=== PATIENT | female | born 1935 | race Hispanic/Latino ===

== ENCOUNTER 2016-05-22 14:23 | Outpatient (CLI) | payer MEDICARE, OTHER ==
--- NOTE | 2016-05-22 15:14 | XRay Report ---
Cervical spine 3 views: History: Cervical age. Myelopathy. Findings: Normal height of vertebral bodies. Decrease in height of the C5-C6, C6-C7 and C7-T1. Sclerotic adjacent articular surfaces with peripheral osteophytes suggestive of cervical spondylosis. No fracture. Normal prevertebral soft tissue. Impression: Moderate to severe cervical spondylosis.
== END 2016-05-22 14:24 | disposition home or self-care (01) ==
LOC: SPVIMAG 14:23
PROVIDERS: ATTEND Internal Medicine
DX: M47.892 Other spondylosis, cervical region (principal); M50.00 Cervical disc disorder with myelopathy, unspecified cervical region; M25.78 Osteophyte, vertebrae
CPT/HCPCS: 72040

== ENCOUNTER 2016-08-11 06:38 | Inpatient (IN) | payer MEDICARE, OTHER ==
[2016-08-11] MEDS ORDERED: ZOFRAN ODT PO ONE (08:33)
[2016-08-11] MEDS ORDERED: NORCO 5/325 PO ONE (08:33)
--- NOTE | 2016-08-11 08:38 | Emergency Department Report ---
ED General Adult HPI - General Chief complaint: Back Pain/Injury Stated complaint: BACK PAIN Time Seen by Provider: 08/11/16 08:15 Source: patient, family, EMS Mode of arrival: Stretcher Limitations: No Limitations - History of Present Illness Initial comments: PT c/o "all my muscles in my body are hurting" PT states this started several days ago. PT's reports that pt has a hx of arthritis in her neck and has disc disease in her back and her pain has been increased x 1 week. PT states 1 week ago, she was sitting in a lazy boy and she had on new slick pants and she slid out of the chair. PT states she landed on her buttocks and she was not able to get up. PT states her was asleep and she sat on the floor until he woke up and could get her up. PT states this morning, she had the urge to use the restroom and she urinated while she was "taking baby steps" to the potty chair. PT states after she had bm, she was unable to get up from potty chair. PT states she was on the chair for 2 hours. PT states she was recently seen by senior sql developer and had an EKG and was given a good bill of health. PT states she was also seen by Psych and her doctor did a medication review and told her not to take Aleve more than three days a week. Pt's reports that she has recently had neck xrs and she was given a muscle relaxer but the muscle relaxer was too strong and "almost put her out" MD Complaint: muscle pain, lbp -: Gradual, week(s) (one ) Location: upper extremity, lower extremity Severity scale (0 -10): 7 Quality: constant Consistency: constant Improves with: none Worsens with: movement (of lower ext) Associated Symptoms: malaise, weakness (generalized ). denies: confusion, chest pain, nausea/vomiting, syncope Treatments Prior to Arrival: none - Related Data Home Medications Medication Instructions Recorded Confirmed Last Taken AtorvaSTATin [Lipitor] 10 mg PO QHS 08/11/16 08/11/16 Unknown Baclofen [Lioresal] 10 mg PO DAILY 08/11/16 08/11/16 Unknown Insulin Glargine,Hum.rec.anlog 30 units SQ QHS 08/11/16 08/11/16 Unknown [Lantus Solostar] Sertraline [Zoloft] 100 mg PO BID 08/11/16 08/11/16 Unknown Tizanidine HCl [Zanaflex] 4 mg PO BID 08/11/16 08/11/16 Unknown glipiZIDE [Glucotrol] 5 mg PO QDAY 08/11/16 08/11/16 Unknown Allergies Allergy/AdvReac Type Severity Reaction Status Date / Time Penicillins AdvReac Itching Unverified 12/27/12 14:07 ED Review of Systems ROS: Stated complaint: BACK PAIN Other details as noted in HPI Comment: All other systems reviewed and negative Constitutional: weakness (generalized ), other (trouble sleeping ) Cardiovascular: denies: chest pain, syncope Endocrine: other (elevated hgA1c ) Gastrointestinal: denies: nausea, vomiting, diarrhea, constipation Genitourinary: other (functional incontinence) Musculoskeletal: back pain, arthralgia, myalgia, other (neck pain) Neurological: weakness, numbness ED Past Medical Hx - Past Medical History Hx Diabetes: Yes Hx Psychiatric Treatment: Yes (depression/anxiety) Additional medical history: renal stones, - Social History Smoking Status: Never Smoker Substance Use Type: None - Medications Home Medications: Home Medications Medication Instructions Recorded Confirmed Last Taken Type AtorvaSTATin [Lipitor] 10 mg PO QHS 08/11/16 08/11/16 Unknown History Baclofen [Lioresal] 10 mg PO DAILY 08/11/16 08/11/16 Unknown History Insulin Glargine,Hum.rec.anlog 30 units SQ QHS 08/11/16 08/11/16 Unknown History [Lantus Solostar] Sertraline [Zoloft] 100 mg PO BID 08/11/16 08/11/16 Unknown History Tizanidine HCl [Zanaflex] 4 mg PO BID 08/11/16 08/11/16 Unknown History glipiZIDE [Glucotrol] 5 mg PO QDAY 08/11/16 08/11/16 Unknown History ED Physical Exam - General Limitations: No Limitations General appearance: alert, in no apparent distress - Head Head exam: Present: atraumatic, normocephalic, normal inspection - Eye Eye exam: Present: normal appearance. Absent: conjunctival injection - ENT ENT exam: Present: normal exam, normal external ear exam - Neck Neck exam: Present: normal inspection, full ROM. Absent: tenderness - Respiratory Respiratory exam: Present: normal lung sounds bilaterally. Absent: respiratory distress, chest wall tenderness - Cardiovascular Cardiovascular Exam: Present: regular rate, normal rhythm, normal heart sounds - GI/Abdominal GI/Abdominal exam: Present: soft, normal bowel sounds. Absent: distended, tenderness, guarding, rebound - Rectal Rectal exam: Present: normal inspection - External exam: Present: normal external exam - Extremities Exam Extremities exam: Present: normal inspection, normal capillary refill, other. Absent: full ROM, tenderness, pedal edema, joint swelling, calf tenderness - Expanded Lower Extremity Exam Left Hip exam: Present: normal inspection. Absent: full ROM (pt has L hip pain limiting rom ), tenderness, external rotation, internal rotation Knee exam: Present: normal inspection. Absent: tenderness Lower Leg exam: Present: normal inspection. Absent: tenderness Neuro vascular tendon exam: Present: no vascular compromise. Absent: pulse deficit Right Hip exam: Present: normal inspection. Absent: full ROM (pt has R hip pain limiting rom ) Upper Leg exam: Present: normal inspection Knee exam: Present: normal inspection. Absent: tenderness Lower Leg exam: Present: normal inspection. Absent: tenderness Ankle exam: Present: normal inspection. Absent: tenderness Neuro vascular tendon exam: Present: no vascular compromise - Back Exam Back exam: Present: normal inspection. Absent: tenderness, CVA tenderness (R), CVA tenderness (L), muscle spasm, paraspinal tenderness, vertebral tenderness - Expanded Back Exam Expanded Back exam: Positive Straight Leg Raise: Left, Right (however, pt also reports increase of hip to side being tested) - Neurological Exam Neurological exam: Present: alert, oriented X3 - Expanded Neurological Exam Expanded Patient oriented to: Present: person, place, time Speech: Present: fluid speech Motor strength exam: RUE: 4, LUE: 4, RLE: 3 (pt reports incease pain to R hip with rom of RLE ), LLE: 3 (pt reports increase pain to L hip with ROM of LLE ) Best Eye Response ([place]): (4) open spontaneously Best Motor Response ([place]): (6) obeys commands Best Verbal Response ([place]): (5) oriented [place] Total: 15 - Psychiatric Psychiatric exam: Present: normal affect, normal mood - Skin Skin exam: Present: warm, dry, intact, erythema (to buttocks, blanches ) ED Course Vital Signs 08/11/16 08/11/16 08/11/16 08:53 12:30 15:22 Temperature 98.3 F Pulse Rate 77 80 69 Respiratory 16 16 16 Rate Blood Pressure 149/68 130/78 112/75 [Left] O2 Sat by Pulse 16 L 99 99 Oximetry - Reevaluation(s) Reevaluation #1: 08/11/16 08:51 PT and her aware of plan of care. Reevaluation #2: 08/11/16 11:11 PT states the pain pill helped her pain. PT aware awaiting UA and CT report Reevaluation #3: 08/11/16 13:24 PT and pt's aware of labs and CT scan. PT's reports that pt has a hx of septic shock from UTI 6-7 years ago. offered admission, pt accepted. - Consultations Consultation #1: 08/11/16 13:24 Dr Sheridan - Pulse Oximetry Interpretation Digit-Finger Initial Pulse Oximetry Readin Actions Taken: none ED Medical Decision Making - Lab Data Result diagrams: 08/11/16 08:38 08/11/16 08:38 Labs 08/11/16 08/11/16 08/11/16 08:38 08:38 12:15 WBC 10.1 RBC 4.41 Hgb 12.0 Hct 35.4 MCV 80 MCH 27 L MCHC 34 RDW 13.8 Plt Count 303 Lymph % (Auto) 15.0 [place] % (Auto) 7.6 H Eos % (Auto) 1.1 Baso % (Auto) 0.5 Lymph # 1.5 [place] # 0.8 Eos # 0.1 Baso # 0.0 Seg Neutrophils % 75.8 H Seg Neutrophils # 7.7 Sodium 134 L Potassium 4.0 Chloride 96.8 L Carbon Dioxide 22 Anion Gap 19 BUN 12 Creatinine 0.6 L Estimated GFR > 60 BUN/Creatinine Ratio 20.00 Glucose 275 H Calcium 9.1 Total Bilirubin 0.80 AST 11 ALT 10 Alkaline Phosphatase 95 Total Creatine Kinase 25 L Total Protein 7.5 Albumin 3.1 L Albumin/Globulin Ratio 0.7 Urine Color Yellow Urine Turbidity Cloudy Urine pH 7.0 Ur Specific [place] 1.017 Urine Protein 30 mg/dl Urine Glucose (UA) >=500 Urine Ketones Tr Urine Blood Neg Urine Nitrite Neg Urine Bilirubin Neg Urine Urobilinogen < 2.0 Ur Leukocyte Esterase Mod Urine WBC (Auto) 33.0 H Urine RBC (Auto) 3.0 U Epithel Cells (Auto) < 1.0 Urine Bacteria (Auto) 1+ Urine Mucus Few - Radiology Data Radiology results: report reviewed XR hips - nap CT L spine - no fx, osteopenia, degenerative changes - Differential Diagnosis fall, fracture, uti, rhabdo, Critical Care Time: No Critical care attestation.: If time is entered above; I have spent that time in minutes in the direct care of this critically ill patient, excluding procedure time. ED Disposition Clinical Impression: Myalgia, Impaired gait and mobility UTI (urinary tract infection) Qualifiers: Urinary tract infection type: site unspecified Hematuria presence: with hematuria Qualified Code(s): N39.0 - Urinary tract infection, site not specified Low back pain Qualifiers: Chronicity: acute Back pain laterality: midline Sciatica presence: unspecified whether sciatica present Qualified Code(s): M54.5 - Low back pain Disposition: OP ADMIT IP TO THIS HOSP Is pt being admited?: Yes Does the pt Need Aspirin: No Condition: Stable
[2016-08-11 09:18] LABS: Basophils % (Auto) 0.5 % (0.0-1.8); Eosinophils % (Auto) 1.1 % (0.0-4.3); Hematocrit 35.4 % (30.3-42.9); Mean Corpuscular HGB Conc 34 % (30-34); Mean Corpuscular Hemoglobin 27 pg (28-32); Mean Corpuscular Volume 80 fl (79-97); Platelet Count 303 K/mm3 (140-440); Red Blood Count 4.41 M/mm3 (3.65-5.03); Red Cell Distribution Width 13.8 % (13.2-15.2); White Blood Count 10.1 K/mm3 (4.5-11.0)
[2016-08-11 09:26] LABS: Alanine Aminotransferase 10 units/L (7-56); Albumin 3.1 g/dL (3.9-5); Albumin/Globulin Ratio 0.7 %; Alkaline Phosphatase 95 units/L (35-129); Anion Gap 19 mmol/L; Blood Urea Nitrogen 12 mg/dL (7-17); Calcium 9.1 mg/dL (8.4-10.2); Carbon Dioxide 22 mmol/L (22-30); Chloride 96.8 mmol/L (98-107); Creatine Kinase 25 units/L (30-135); Glucose 275 mg/dL (65-100); Sodium 134 mmol/L (137-145); Total Protein 7.5 g/dL (6.3-8.2)
--- NOTE | 2016-08-11 10:34 | XRay Report ---
Bilateral hips and pelvis: History: Pain status post fall one week ago. Findings: There is arthritic changes noted in the right and left hip joint. No fracture dislocation or soft tissue calcification. Impression: No evidence of acute fracture.
--- NOTE | 2016-08-11 11:56 | Cat Scan Report ---
CT of the lumbar spine without contrast. History: Low back pain and lower extremity numbness after fall. Findings: Helical acquisition with sagittal and coronal reformatted images were obtained. The vertebral body heights are well-maintained. There is no evidence of compression fracture or subluxation. At T12-L1, there is severe narrowing of the disc space with vacuum disc phenomenon. There are extensive anterior hypertrophic changes. At L1-2, there is moderate facet joint DJD and hypertrophy. At L2-3, there is mild facet joint DJD and hypertrophy. At L3-4, there is mild facet joint DJD. At the L4-5 level, there is moderate facet joint DJD and hypertrophy with a circumferential disc bulge. At L5-S1, there is severe narrowing of the disc space. There are posterior hypertrophic changes with bilateral foraminal stenosis. There is diffuse osteopenia. Impression: Multilevel spondylosis and facet joint arthropathy, most pronounced at L5-S1 where foraminal stenosis is present. There is diffuse osteopenia. No acute findings are seen.
[2016-08-11 12:35] LABS: Bacteria,Urine 1+ /HPF (Negative); Bilirubin,Urine NEG (Negative); Blood,Urine NEG (Negative); Ketones,Urine TR mg/dL (Negative); Leukocyte Esterase,Urine MOD (Negative); Mucus,Urine FEW /HPF; Nitrite,Urine NEG (Negative); Urobilinogen,Urine < 2.0 mg/dL (<2.0)
--- NOTE | 2016-08-11 13:23 | History and Physical Report ---
History of Present Illness Chief complaint: I feel sick, My back hurts, History of present illness: 80 YO female with DM, Depression, Anxiety, presents to ED for evaluation. Pt states that she has experienced weakness, and back pain for the past 2 weeks, with worsening symptoms over the past week. Pt states that she feels weak and is no longer able to get up from a seated position and walk. Pt acknowledges suprapubic tenderness, loss of bladder continence, as well as subjective fever. Pt denies chills, CP, Palpitations, NVD, Syncope, Trauma, Vertigo, loss of bowel continence, productive cough, or recent ill contacts. Past History Past Medical History: diabetes Past Surgical History: No surgical history, Other (reviewed) Social history: , lives with family. denies: smoking, alcohol abuse, prescription drug abuse Family history: hypertension Medications and Allergies Allergies Allergy/AdvReac Type Severity Reaction Status Date / Time Penicillins AdvReac Itching Unverified 12/27/12 14:07 Home Medications Medication Instructions Recorded Confirmed Last Taken Type AtorvaSTATin [Lipitor] 10 mg PO QHS 08/11/16 08/11/16 Unknown History Baclofen [Lioresal] 10 mg PO DAILY 08/11/16 08/11/16 Unknown History Insulin Glargine,Hum.rec.anlog 30 units SQ QHS 08/11/16 08/11/16 Unknown History [Lantus Solostar] Sertraline [Zoloft] 100 mg PO BID 08/11/16 08/11/16 Unknown History Tizanidine HCl [Zanaflex] 4 mg PO BID 08/11/16 08/11/16 Unknown History glipiZIDE [Glucotrol] 5 mg PO QDAY 08/11/16 08/11/16 Unknown History Review of Systems All systems: negative Genitourinary Female: dysuria Exam - Constitutional Vitals: Temp Pulse Resp BP Pulse Ox 98.3 F 77 16 149/68 99 08/11/16 08:53 08/11/16 08:53 08/11/16 08:53 08/11/16 08:53 08/11/16 08:53 General appearance: Present: mild distress - EENT Eyes: Present: PERRL ENT: hearing intact, clear oral mucosa - Neck Neck: Present: supple, normal ROM - Respiratory Respiratory effort: normal Respiratory: bilateral: CTA - Cardiovascular Heart Sounds: Present: S1 & S2. Absent: rub, click - Extremities Extremities: pulses symmetrical, No edema Peripheral Pulses: within normal limits - Abdominal General gastrointestinal: Present: soft, non-tender, non-distended, normal bowel sounds Localized gastrointestinal: tender: suprapubic Female genitourinary: Present: normal - Integumentary Integumentary: Present: clear, dry, decreased turgor - Musculoskeletal Musculoskeletal: generalized weakness - Psychiatric Psychiatric: appropriate mood/affect, intact judgment & insight - Neurologic Neurologic: CNII-XII intact, moves all extremities, no gait normal Results - Labs CBC & Chem 7: 08/11/16 08:38 08/11/16 08:38 Labs: Abnormal lab results 08/11/16 08/11/16 08/11/16 Range/Units 08:38 08:38 12:15 MCH 27 L (28-32) pg [place] % (Auto) 7.6 H (0.0-7.3) % Seg Neutrophils % 75.8 H (40.0-70.0) % Sodium 134 L (137-145) mmol/L Chloride 96.8 L (98-107) mmol/L Creatinine 0.6 L (0.7-1.2) mg/dL Glucose 275 H (65-100) mg/dL Total Creatine Kinase 25 L (30-135) units/L Albumin 3.1 L (3.9-5) g/dL Urine WBC (Auto) 33.0 H (0.0-6.0) /HPF Assessment and Plan - Patient Problems (1) UTI (urinary tract infection) Current Visit: Yes Status: Acute Qualifiers: Urinary tract infection type: site unspecified Hematuria presence: with hematuria Indwelling urinary catheter type: I Encounter type: E Qualified Code(s): N39.0 - Urinary tract infection, site not specified; R31.9 - Hematuria , unspecified Plan to address problem: IV abx, IVF, supportive care, monitor uop q shift (2) Debility Current Visit: Yes Status: Acute Plan to address problem: PT consulted, Pending evaluation for rehab/SNF placement (3) Hyponatremia syndrome Current Visit: Yes Status: Acute Plan to address problem: IVF replacement, repeat bmp (4) Impaired gait and mobility Current Visit: Yes Status: Acute Plan to address problem: PT consulted, bed alarm, fall precautions, (5) Low back pain Current Visit: Yes Status: Acute Qualifiers: Chronicity: acute Back pain laterality: midline Sciatica presence: unspecified whether sciatica present Sciatica laterality: S Qualified Code(s ): M54.5 - Low back pain Plan to address problem: Pain control, supportive care, (6) DVT prophylaxis Current Visit: Yes Status: Acute
[2016-08-11] MEDS ORDERED: NACL 0.9% 1000 ML 1,000 ML IV ONE (13:25)
--- NOTE | 2016-08-11 13:40 | Admit Criteria Form ---
Admission Criteria Documentation: URINARY COMPLICATIONS Clinical Indications for Inpatient Care (Place 'X' for any and all applicable criteria): Ongoing inpatient care may be indicated for urinary complications with ANY ONE of the following: [X ]I. Urinary tract infection requiring inpatient care as indicated by ANY ONE of the following(8)(19)(20): [ ]a) Severe symptoms (eg, high fever, severe pain) [ ]b) Vomiting or dehydration requiring ongoing inpatient care [ X]c) IV antibiotic needs that cannot be managed at lower level of care [ ]d) Hemodynamic instability [ ]e) Obstruction of collecting system by stone or tumor [ ]II. Urinary retention requiring drainage or surgery (3)(4)(5)(17)(18) [ ]III. Renal failure (Use Renal Failure Criteria for further information.) [ ]IV. Oliguria(30) [ ]V. Post obstructive diuresis requiring close monitoring of urine output and intravenous compensation for excessive fluid losses(33) Extended stay beyond goal length of stay for primary condition may be needed until ALL of the following are present(3)(4)(5)(8): [ ]a) Renal function (creatinine) at baseline, or daily decreases in creatinine consistent with renal function return [ ]b) Voiding adequately or with urinary catheter or percutaneous suprapubic tube and management regimen in place that is performable at lower level of care. [ ]c) Urine output adequate [ ]d) Fever absent or resolving [ ]e) Infection absent or treatable at next level of care The original [employer] content created by [employer] has been revised. The portions of the content which have been revised are identified through the use of italic text or in bold, and [facility] has neither reviewed nor approved the modified material. All other unmodified content is copyright [employer] Please see references footnoted in the original [employer] edition 2016 Admission Criteria Met: Yes
[2016-08-11] MEDS ORDERED: ZOFRAN IV PRN (14:13)
[2016-08-11] MEDS ORDERED: DULCOLAX PR PRN (14:13)
[2016-08-11] MEDS ORDERED: MILK OF MAGNESIA PO PRN (14:13)
[2016-08-11] MEDS ORDERED: LEVAQUIN 500MG/100ML 500 MG/100 ML BAG IV SCH (14:31)
[2016-08-11] MEDS ORDERED: NACL 0.9% 1000 ML 1,000 ML ONE (15:15)
[2016-08-11] MEDS ORDERED: LEVAQUIN 500MG/100ML 500 MG/100 ML BAG IV ONE (15:25)
[2016-08-11] MEDS: LEVAQUIN 250MG/50ML 250 MG/50 ML BAG IV SCH ×2 (15:30→16:02)
[2016-08-11] MEDS ORDERED: INSULIN GLARGINE HUM REC ANLOG 30 UNIT SQ SCH (22:00)
[2016-08-11] MEDS ORDERED: NON-FORMULARY (Tizanidine Hcl [Zanaflex] 4 MG) PO SCH (22:00)
[2016-08-11] MEDS: LEVEMIR SUB-Q SCH (23:01)
[2016-08-11] MEDS: ZANAFLEX PO SCH (23:02)
[2016-08-11] MEDS: ZOLOFT PO SCH (23:02)
[2016-08-12] MEDS: TYLENOL PO PRN ×2 (08:07→22:13)
--- NOTE | 2016-08-12 08:31 | Progress Note ---
Assessment and Plan Assessment and plan: --sepsis secondary to urinary tract infection Continue empiric antibiotics, follow cultures, IV fluids --Mild hyponatremia, slight improvement, continue IV fluids Closely monitor electrolytes --Type 2 diabetes mellitus; moderate control, Accu-Chek sliding scale coverage and ADA diet Insulin and oral hypoglycemics, check hemoglobin A1c, diabetic education, home with diabetic nurse --Degenerative joint disease Supportive care, pain medications, physical therapy occupational therapy --General debility/advanced age Supportive care, physical therapy and occupational therapy, fall precautions --Dyslipidemia; stable on lipid-lowering medications --DVT prophylaxis with Lovenox Physical therapy occupational therapy --DC planning. Case management --Code status; full code As the monitor the patient had just management as needed History Interval history: Patient seen and evaluated this morning medical records reviewed Admitted with urinary tract infection on empiric antibiotics Patient feels slightly better, blood sugars are uncontrolled Alert awake and responding appropriately, vital signs stable Hospitalist Physical - Constitutional Vitals: Temp Pulse Resp BP Pulse Ox 98.1 F 65 20 146/64 96 08/11/16 23:45 08/11/16 23:45 08/11/16 23:45 08/11/16 23:45 08/11/16 23:45 General appearance: Present: no acute distress, cachectic - EENT Eyes: Present: PERRL, EOM intact - Neck Neck: Present: supple, normal ROM - Respiratory Respiratory effort: normal Respiratory: bilateral: diminished, negative: rales, rhonchi, wheezing - Cardiovascular Rhythm: regular Heart Sounds: Present: S1 & S2 - Extremities Extremities: no ischemia, pulses intact, pulses symmetrical Peripheral Pulses: within normal limits - Abdominal General gastrointestinal: soft, non-tender, non-distended, normal bowel sounds - Integumentary Integumentary: Present: clear, warm - Psychiatric Psychiatric: appropriate mood/affect, cooperative - Neurologic Neurologic: CNII-XII intact, moves all extremities Results - Labs CBC & Chem 7: 08/11/16 08:38 08/11/16 08:38 Labs: Laboratory Last Values WBC 10.1 K/mm3 (4.5-11.0) 08/11/16 08:38 RBC 4.41 M/mm3 (3.65-5.03) 08/11/16 08:38 Hgb 12.0 gm/dl (10.1-14.3) 08/11/16 08:38 Hct 35.4 % (30.3-42.9) 08/11/16 08:38 MCV 80 fl (79-97) 08/11/16 08:38 MCH 27 pg (28-32) L 08/11/16 08:38 MCHC 34 % (30-34) 08/11/16 08:38 RDW 13.8 % (13.2-15.2) 08/11/16 08:38 Plt Count 303 K/mm3 (140-440) 08/11/16 08:38 Lymph % (Auto) 15.0 % (13.4-35.0) 08/11/16 08:38 [place] % (Auto) 7.6 % (0.0-7.3) H 08/11/16 08:38 Eos % (Auto) 1.1 % (0.0-4.3) 08/11/16 08:38 Baso % (Auto) 0.5 % (0.0-1.8) 08/11/16 08:38 Lymph # 1.5 K/mm3 (1.2-5.4) 08/11/16 08:38 [place] # 0.8 K/mm3 (0.0-0.8) 08/11/16 08:38 Eos # 0.1 K/mm3 (0.0-0.4) 08/11/16 08:38 Baso # 0.0 K/mm3 (0.0-0.1) 08/11/16 08:38 Seg Neutrophils % 75.8 % (40.0-70.0) H 08/11/16 08:38 Seg Neutrophils # 7.7 K/mm3 (1.8-7.7) 08/11/16 08:38 Sodium 134 mmol/L (137-145) L 08/11/16 08:38 Potassium 4.0 mmol/L (3.6-5.0) 08/11/16 08:38 Chloride 96.8 mmol/L (98-107) L 08/11/16 08:38 Carbon Dioxide 22 mmol/L (22-30) 08/11/16 08:38 Anion Gap 19 mmol/L 08/11/16 08:38 BUN 12 mg/dL (7-17) 08/11/16 08:38 Creatinine 0.6 mg/dL (0.7-1.2) L 08/11/16 08:38 Estimated GFR > 60 ml/min 08/11/16 08:38 BUN/Creatinine Ratio 20.00 % 08/11/16 08:38 Glucose 275 mg/dL (65-100) H 08/11/16 08:38 POC Glucose 159 (70-105) H 08/12/16 07:45 Calcium 9.1 mg/dL (8.4-10.2) 08/11/16 08:38 Total Bilirubin 0.80 mg/dL (0.1-1.2) 08/11/16 08:38 AST 11 units/L (5-40) 08/11/16 08:38 ALT 10 units/L (7-56) 08/11/16 08:38 Alkaline Phosphatase 95 units/L (35-129) 08/11/16 08:38 Total Creatine Kinase 25 units/L (30-135) L 08/11/16 08:38 Total Protein 7.5 g/dL (6.3-8.2) 08/11/16 08:38 Albumin 3.1 g/dL (3.9-5) L 08/11/16 08:38 Albumin/Globulin Ratio 0.7 % 08/11/16 08:38 Urine Color Yellow (Yellow) 08/11/16 12:15 Urine Turbidity Cloudy (Clear) 08/11/16 12:15 Urine pH 7.0 (5.0-7.0) 08/11/16 12:15 Ur Specific [place] 1.017 (1.003-1.030) 08/11/16 12:15 Urine Protein 30 mg/dl mg/dL (Negative) 08/11/16 12:15 Urine Glucose (UA) >=500 mg/dL (Negative) 08/11/16 12:15 Urine Ketones Tr mg/dL (Negative) 08/11/16 12:15 Urine Blood Neg (Negative) 08/11/16 12:15 Urine Nitrite Neg (Negative) 08/11/16 12:15 Urine Bilirubin Neg (Negative) 08/11/16 12:15 Urine Urobilinogen < 2.0 mg/dL (<2.0) 08/11/16 12:15 Ur Leukocyte Esterase Mod (Negative) 08/11/16 12:15 Urine WBC (Auto) 33.0 /HPF (0.0-6.0) H 08/11/16 12:15 Urine RBC (Auto) 3.0 /HPF (0.0-6.0) 08/11/16 12:15 U Epithel Cells (Auto) < 1.0 /HPF (0-13.0) 08/11/16 12:15 Urine Bacteria (Auto) 1+ /HPF (Negative) 08/11/16 12:15 Urine Mucus Few /HPF 08/11/16 12:15
[2016-08-12] MEDS: ZOLOFT PO SCH ×2 (10:25→22:13)
[2016-08-12] MEDS: LIORESAL PO SCH (10:25)
[2016-08-12] MEDS: ZANAFLEX PO SCH ×2 (10:25→22:12)
[2016-08-12] MEDS: LEVAQUIN 250MG/50ML 250 MG/50 ML BAG IV SCH (16:13)
[2016-08-12] MEDS: NOVOLOG SUB-Q SCH ×2 (16:46→22:35)
[2016-08-12] MEDS: LOVENOX SUB-Q SCH (22:13)
[2016-08-12] MEDS: LEVEMIR SUB-Q SCH (22:16)
[2016-08-13] MEDS: NOVOLOG SUB-Q SCH ×4 (07:40→22:54)
--- NOTE | 2016-08-13 07:43 | Progress Note ---
Assessment and Plan Assessment and plan: --sepsis secondary to urinary tract infection Continue empiric antibiotics, changed to oral Levaquin, cultures negative so far --Mild hyponatremia, corrected --Type 2 diabetes mellitus; moderate control, Accu-Chek sliding scale coverage and ADA diet Insulin and oral hypoglycemics, check hemoglobin A1c, diabetic education, home with diabetic nurse --Degenerative joint disease Supportive care, pain medications, physical therapy occupational therapy --General debility/advanced age Supportive care, physical therapy and occupational therapy, fall precautions --Dyslipidemia; stable on lipid-lowering medications --DVT prophylaxis with Lovenox Physical therapy occupational therapy --DC planning. Case management --Code status; full code Discharge in 1-2 days if stable As the monitor the patient had just management as needed History Interval history: patient seen and evaluated medical records reviewed No new events reported by the nursing staff Complaints of generalized weakness, alert and awake and responds appropriately Vital signs stable Hospitalist Physical - Constitutional Vitals: Temp Pulse Resp BP Pulse Ox 98.1 F 61 18 90/69 99 08/12/16 22:00 08/13/16 02:07 08/12/16 23:13 08/12/16 22:00 08/12/16 22:00 General appearance: Present: no acute distress, cachectic - EENT Eyes: Present: PERRL, EOM intact ENT: hearing intact, clear oral mucosa, dentition normal - Neck Neck: Present: supple, normal ROM - Respiratory Respiratory: bilateral: diminished, negative: rales, rhonchi, wheezing - Cardiovascular Rhythm: regular Heart Sounds: Present: S1 & S2 - Extremities Extremities: no ischemia, No edema Peripheral Pulses: within normal limits - Abdominal General gastrointestinal: soft, non-tender, non-distended, normal bowel sounds - Integumentary Integumentary: Present: clear, warm - Psychiatric Psychiatric: appropriate mood/affect, cooperative - Neurologic Neurologic: CNII-XII intact, moves all extremities Results - Labs CBC & Chem 7: 08/11/16 08:38 08/13/16 07:00 Labs: Laboratory Last Values WBC 10.1 K/mm3 (4.5-11.0) 08/11/16 08:38 RBC 4.41 M/mm3 (3.65-5.03) 08/11/16 08:38 Hgb 12.0 gm/dl (10.1-14.3) 08/11/16 08:38 Hct 35.4 % (30.3-42.9) 08/11/16 08:38 MCV 80 fl (79-97) 08/11/16 08:38 MCH 27 pg (28-32) L 08/11/16 08:38 MCHC 34 % (30-34) 08/11/16 08:38 RDW 13.8 % (13.2-15.2) 08/11/16 08:38 Plt Count 303 K/mm3 (140-440) 08/11/16 08:38 Lymph % (Auto) 15.0 % (13.4-35.0) 08/11/16 08:38 [place] % (Auto) 7.6 % (0.0-7.3) H 08/11/16 08:38 Eos % (Auto) 1.1 % (0.0-4.3) 08/11/16 08:38 Baso % (Auto) 0.5 % (0.0-1.8) 08/11/16 08:38 Lymph # 1.5 K/mm3 (1.2-5.4) 08/11/16 08:38 [place] # 0.8 K/mm3 (0.0-0.8) 08/11/16 08:38 Eos # 0.1 K/mm3 (0.0-0.4) 08/11/16 08:38 Baso # 0.0 K/mm3 (0.0-0.1) 08/11/16 08:38 Seg Neutrophils % 75.8 % (40.0-70.0) H 08/11/16 08:38 Seg Neutrophils # 7.7 K/mm3 (1.8-7.7) 08/11/16 08:38 Sodium 134 mmol/L (137-145) L 08/11/16 08:38 Potassium 4.0 mmol/L (3.6-5.0) 08/11/16 08:38 Chloride 96.8 mmol/L (98-107) L 08/11/16 08:38 Carbon Dioxide 22 mmol/L (22-30) 08/11/16 08:38 Anion Gap 19 mmol/L 08/11/16 08:38 BUN 12 mg/dL (7-17) 08/11/16 08:38 Creatinine 0.6 mg/dL (0.7-1.2) L 08/11/16 08:38 Estimated GFR > 60 ml/min 08/11/16 08:38 BUN/Creatinine Ratio 20.00 % 08/11/16 08:38 Glucose 275 mg/dL (65-100) H 08/11/16 08:38 POC Glucose 217 (70-105) H 08/12/16 22:25 Calcium 9.1 mg/dL (8.4-10.2) 08/11/16 08:38 Total Bilirubin 0.80 mg/dL (0.1-1.2) 08/11/16 08:38 AST 11 units/L (5-40) 08/11/16 08:38 ALT 10 units/L (7-56) 08/11/16 08:38 Alkaline Phosphatase 95 units/L (35-129) 08/11/16 08:38 Total Creatine Kinase 25 units/L (30-135) L 08/11/16 08:38 Total Protein 7.5 g/dL (6.3-8.2) 08/11/16 08:38 Albumin 3.1 g/dL (3.9-5) L 08/11/16 08:38 Albumin/Globulin Ratio 0.7 % 08/11/16 08:38 Urine Color Yellow (Yellow) 08/11/16 12:15 Urine Turbidity Cloudy (Clear) 08/11/16 12:15 Urine pH 7.0 (5.0-7.0) 08/11/16 12:15 Ur Specific [place] 1.017 (1.003-1.030) 08/11/16 12:15 Urine Protein 30 mg/dl mg/dL (Negative) 08/11/16 12:15 Urine Glucose (UA) >=500 mg/dL (Negative) 08/11/16 12:15 Urine Ketones Tr mg/dL (Negative) 08/11/16 12:15 Urine Blood Neg (Negative) 08/11/16 12:15 Urine Nitrite Neg (Negative) 08/11/16 12:15 Urine Bilirubin Neg (Negative) 08/11/16 12:15 Urine Urobilinogen < 2.0 mg/dL (<2.0) 08/11/16 12:15 Ur Leukocyte Esterase Mod (Negative) 08/11/16 12:15 Urine WBC (Auto) 33.0 /HPF (0.0-6.0) H 08/11/16 12:15 Urine RBC (Auto) 3.0 /HPF (0.0-6.0) 08/11/16 12:15 U Epithel Cells (Auto) < 1.0 /HPF (0-13.0) 08/11/16 12:15 Urine Bacteria (Auto) 1+ /HPF (Negative) 08/11/16 12:15 Urine Mucus Few /HPF 08/11/16 12:15
[2016-08-13 07:46] LABS: Anion Gap 19 mmol/L; BUN/Creatinine Ratio 21.66; Blood Urea Nitrogen 13 mg/dL (7-17); Calcium 8.9 mg/dL (8.4-10.2); Carbon Dioxide 24 mmol/L (22-30); Chloride 101.7 mmol/L (98-107); Glucose 99 mg/dL (65-100); Potassium 4.2 mmol/L (3.6-5.0); Sodium 140 mmol/L (137-145)
[2016-08-13] MEDS: LIORESAL PO SCH (09:32)
[2016-08-13] MEDS: GLUCOTROL PO SCH (09:32)
[2016-08-13] MEDS: ZANAFLEX PO SCH ×2 (09:33→22:54)
[2016-08-13] MEDS: ZOLOFT PO SCH ×2 (09:33→22:54)
[2016-08-13] MEDS: LEVAQUIN 250MG/50ML 250 MG/50 ML BAG IV SCH (16:05)
[2016-08-13] MEDS ORDERED: LEVEMIR SUB-Q SCH (16:33)
[2016-08-13] MEDS: LOVENOX SUB-Q SCH (22:54)
[2016-08-14] MEDS: NOVOLOG SUB-Q SCH ×3 (08:30→17:12)
[2016-08-14] MEDS: LIORESAL PO SCH (11:02)
[2016-08-14] MEDS: GLUCOTROL PO SCH (11:02)
[2016-08-14] MEDS: ZOLOFT PO SCH (11:02)
[2016-08-14] MEDS: TYLENOL PO PRN (11:02)
[2016-08-14] MEDS: ZANAFLEX PO SCH (11:02)
[2016-08-14 11:35] VITALS: BP 125/59
--- NOTE | 2016-08-14 13:04 | Query- Immobilty ---
Dear __Tatum Date:__08/14/16 Coal Crusher Operator/CDS:___Tiesha Phone#:__[phone] Exercise your independent professional judgment when responding to this query. Questions asked do not imply a particular answer is desired or expected. We greatly appreciate your clarification on this issue. Clinical Documentation States: 80 year old female was admitted on 08/11/2016. The ED note on 08/11/16 states "PT's reports that pt has a hx of arthritis in her neck and has disc disease in her back and her pain has been increased x 1 week. PT states 1 week ago, she was sitting in a lazy boy and she had on new slick pants and she slid out of the chair. PT states she landed on her buttocks and she was not able to get up. PT states her was asleep and she sat on the floor until he woke up and could get her up. PT states this morning, she had the urge to use the restroom and she urinated while she was "taking baby steps" to the potty chair. PT states after she had bm, she was unable to get up from potty chair. PT states she was on the chair for 2 hours." The hospitalist note on 08/13/2016 states " "Assessment and plan: --Degenerative joint disease Supportive care, pain medications, physical therapy occupational therapy --General debility/advanced age Supportive care, physical therapy and occupational therapy, fall precautions Clinical Findings Show: CT of the lumbar spine without contrast impression: "Multilevel spondylosis and facet joint arthropathy, most pronounced at L5-S1 where foraminal stenosis is present. There is diffuse osteopenia." Please identify whether the condition is: [ ] Quadriplegia [ ] Other Quadriplegia [ ] Quadriplegia, C1-C4, Complete [ ] Functional Quadriplegia [ ] Quadriplegia, C1-C4, Incomplete [ ] Critical Illness Myopathy [ ] Quadriplegia, C5-C7, Complete [ ] Locked-in state [ ] Quadriplegia, C5-C7, Incomplete [ ] Immobility due to frailty or Severe physical disability [ x ] Other:__Degenerative joint disease/osteoarthritis [ ] Comment/Explanation: Present on Admission: [x ] Yes (Y) [ ] Clinically undeterminable (W) [ ] No (N) Please also document response in your Progress Notes and/or Discharge Summary and indicate if the condition was present on admission. MTDD
--- NOTE | 2016-08-14 13:39 | Discharge Summary ---
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 [employer] Hospitalization Reason for admission: back pain Condition: Stable Pertinent studies: CT lumbar spine; multilevel spondylosis and facet joint arthropathy most pronounced at L5 to S1 with foraminal stenosis present diffuse osteopenia X-ray bilateral hip and pelvis; no evidence of acute fracture Hospital course: 80-year-old female patient with significant history of diabetes mellitus depression and anxiety was admitted through emergency room with severe back pain Patient was initially evaluated him and the studies were done which showed severe spondylosis Patient also had sepsis secondary to urinary tract infection, received antibiotics, cultures were followed, electrolyte imbalances were corrected. global regulatory affairs manager evaluated the patient set up home health Patient's symptoms significantly improved on the day of discharge patient was comfortable no new complaints, [id number] evaluation physical examination done by Discharge is unremarkable Patient is hemodynamically and clinically stable for discharge and does not need any further acute inpatient care at this time Discharge diagnosis; Degenerative joint disease Hyponatremia corrected Sepsis secondary to urinary tract infection Type 2 diabetes mellitus Gen. debility Dyslipidemia Disposition: DC/[place]-06 HOME UNDER HOME [facility] Time spent for discharge: 32 min Core Measure Documentation - Palliative Care Palliative Care/ Comfort Measures: Not Applicable - Core Measures Any of the following diagnoses?: none Exam - Constitutional Vitals: Temp Pulse Resp BP Pulse Ox 98.1 F 68 20 125/59 98 08/14/16 10:00 08/14/16 10:08/14/16 10:00 08/14/16 10:08/14/16 10:00 General appearance: Present: no acute distress, well-nourished - EENT Eyes: Present: PERRL, EOM intact - Neck Neck: Present: supple, normal ROM - Respiratory Respiratory effort: normal Respiratory: bilateral: diminished, negative: rales, rhonchi, wheezing - Cardiovascular Rhythm: regular Heart Sounds: Present: S1 & S2 - Extremities Extremities: no ischemia, No edema - Abdominal General gastrointestinal: Present: soft, non-tender, non-distended, normal bowel sounds - Integumentary Integumentary: Present: clear, warm - Musculoskeletal Musculoskeletal: strength equal bilaterally - Psychiatric Psychiatric: appropriate mood/affect, cooperative - Neurologic Neurologic: moves all extremities Plan Activity: advance as tolerated, fall precautions Diet: diabetic Special Instructions: physical therapy, occupational therapy Follow up with: PRIMARY CARE,MD [Primary Care Provider] - 3-5 Days Prescriptions: Levofloxacin [Levaquin TAB] 500 mg PO Q24H #5 tablet
[2016-08-14] MEDS ORDERED: LEVAQUIN PO SCH (17:00)
== END 2016-08-14 17:00 | disposition home health service (06) | DRG 872 ==
LOC: ED 06:38 → CC2 14:19
PROVIDERS: ADMIT Internal Medicine; ATTEND Internal Medicine
DX: A41.9 Sepsis, unspecified organism (principal); N39.0 Urinary tract infection, site not specified; E87.1 Hypo-osmolality and hyponatremia; M54.5 Low back pain; R26.89 Other abnormalities of gait and mobility; F32.9 Major depressive disorder, single episode, unspecified; N20.0 Calculus of kidney; E11.9 Type 2 diabetes mellitus without complications; M19.90 Unspecified osteoarthritis, unspecified site; Z88.0 Allergy status to penicillin; Z79.899 Other long term (current) drug therapy; Z82.49 Family history of ischemic heart disease and other diseases of the circulatory system
CPT/HCPCS: 36415; 72131; 73521; 80048; 80053; 81001; 82550; 82962; 83036; 85025; 87086; A9270-GY; G8978-GP; G8979-GP; J1650; J1815; J1818; J1956; J7030; Q0162

== ENCOUNTER 2016-09-04 10:42 | Inpatient (IN) | payer MEDICARE, OTHER ==
[2016-09-04 11:56] LABS: Basophils % (Auto) 0.3 % (0.0-1.8); Eosinophils % (Auto) 0.4 % (0.0-4.3); Hematocrit 32.9 % (30.3-42.9); Hemoglobin 10.8 gm/dl (10.1-14.3); Mean Corpuscular HGB Conc 33 % (30-34); Mean Corpuscular Hemoglobin 26 pg (28-32); Mean Corpuscular Volume 80 fl (79-97); Platelet Count 306 K/mm3 (140-440); Red Blood Count 4.11 M/mm3 (3.65-5.03); Red Cell Distribution Width 14.8 % (13.2-15.2); White Blood Count 11.3 K/mm3 (4.5-11.0)
[2016-09-04 12:21] LABS: Alanine Aminotransferase 11 units/L (7-56); Albumin 2.9 g/dL (3.9-5); Albumin/Globulin Ratio 0.7 %; Alkaline Phosphatase 80 units/L (35-129); Anion Gap 18 mmol/L; BUN/Creatinine Ratio 18.75; Blood Urea Nitrogen 15 mg/dL (7-17); Calcium 8.3 mg/dL (8.4-10.2); Carbon Dioxide 21 mmol/L (22-30); Chloride 96.2 mmol/L (98-107); Glucose 270 mg/dL (65-100); Potassium 4.6 mmol/L (3.6-5.0); Sodium 131 mmol/L (137-145); Total Protein 7.3 g/dL (6.3-8.2)
[2016-09-04 13:09] LABS: Bacteria,Urine 1+ /HPF (Negative); Bilirubin,Urine NEG (Negative); Blood,Urine NEG (Negative); Ketones,Urine TR mg/dL (Negative); Leukocyte Esterase,Urine NEG (Negative); Mucus,Urine 2+ /HPF; Nitrite,Urine NEG (Negative); Protein,Urine <15 mg/dL mg/dL (Negative); Urobilinogen,Urine < 2.0 mg/dL (<2.0)
--- NOTE | 2016-09-04 14:23 | Emergency Department Report ---
HPI - General Chief Complaint: Weakness Time Seen by Provider: 09/04/16 10:54 - HPI HPI: This is a 80-year-old white female who presented to ED with severe weakness. The patient is accompanied by , who stated that this morning, the patient could not get out of the chair she slept in last night. ED Past Medical Hx - Past Medical History Hx Hypertension: No Hx Heart Attack/AMI: No Hx Congestive Heart Failure: No Hx Diabetes: Yes Hx Deep Vein Thrombosis: No Hx Pulmonary Embolism: No Hx GERD: No Hx Liver Disease: No Hx Seizures: No Hx Psychiatric Treatment: Yes (depression/anxiety) Hx Asthma: No Hx COPD: No Hx Tuberculosis: No Hx Dementia: No Additional medical history: renal stones, - Surgical History Hx Coronary Stent: No Hx Pacemaker: No Hx Internal Defibrillator: No - Social History Smoking Status: Never Smoker Substance Use Type: None - Medications Home Medications: Home Medications Medication Instructions Recorded Confirmed Last Taken Type Baclofen [Lioresal] 10 mg PO DAILY 08/11/16 09/04/16 09/04/16 History Insulin Glargine,Hum.rec.anlog 30 units SQ QHS 08/11/16 09/04/16 09/03/16 History [Lantus Solostar] Sertraline [Zoloft] 100 mg PO BID 08/11/16 09/04/16 09/03/16 History glipiZIDE [Glucotrol] 5 mg PO QDAY 08/11/16 09/04/16 09/03/16 History Levofloxacin [Levaquin TAB] 500 mg PO Q24H #5 tablet 08/14/16 09/04/16 09/03/16 Rx traMADol [Ultram] 50 mg PO Q4HR PRN 09/04/16 09/04/16 09/04/16 History ED Review of Systems ROS: Stated complaint: GENERAL WEAKNESS Other details as noted in HPI Physical Exam - Physical Exam Vital Signs: Vital Signs 09/04/16 09/04/16 11:03 11:25 Temperature 97.9 F Pulse Rate 90 Respiratory 12 Rate Blood Pressure 152/74 Blood Pressure 152/74 [Right] O2 Sat by Pulse 97 97 Oximetry Physical Exam: Gen. alert and oriented 3 in no distress Head atraumatic normocephalic Eyes PERR LA EOMI Chest regular rate and rhythm normal S1-S2 lungs clear bilaterally Abdomen soft nondistended Back no point tenderness paravertebral tenderness Neuro unable to ambulate due to weakness. Psych normal mood. ED Course Vital Signs 09/04/16 09/04/16 11:03 11:25 Temperature 97.9 F Pulse Rate 90 Respiratory 12 Rate Blood Pressure 152/74 Blood Pressure 152/74 [Right] O2 Sat by Pulse 97 97 Oximetry ED Medical Decision Making - Lab Data Result diagrams: 09/04/16 11:46 09/04/16 11:46 Critical care attestation.: If time is entered above; I have spent that time in minutes in the direct care of this critically ill patient, excluding procedure time. ED Disposition Clinical Impression: UTI (urinary tract infection), Weakness Disposition: DC-09 OP ADMIT IP TO THIS HOSP Is pt being admited?: Yes Does the pt Need Aspirin: No Condition: Stable Referrals: PRIMARY CARE, [Primary Care Provider] - 3-5 Days
--- NOTE | 2016-09-04 14:29 | Admit Criteria Form ---
Admission Criteria Documentation: GENERAL ADMISSION CRITERIA (Place 'X' for any and all applicable criteria): Admission is indicated for ANY ONE of the following: [ ]I. Hemodynamic instability as indicated by ANY ONE of the following(1)(2) (3)(4)(5): [ ]a) Vital sign abnormality not readily corrected by appropriate treatment within 12 to 24 hours indicated by ANY ONE of the following: [ ]i) Hypotension [ ]ii) Symptomatic Tachycardia unresponsive to treatment (eg , analgesia, fluids, sedation as indicated) [ ]iii) Orthostatic vital sign changes unresponsive to treatment (eg, fluids) [ ]b) Vital sign abnormality that is severe indicated by ANY ONE of the following: [ ]i) Inadequate perfusion indicated by ANY ONE of the following: [ ]1) Lactic acidosis (greater than 2 mmol/L) [ ]2) New abnormal capillary refill (greater than 3 seconds) [ ]3) Other metabolic acidosis (arterial pH less than 7.35) not otherwise explained [ ]4) Reduced urine output [ ]5) Altered mental status [ ]6) Myocardial Ischemia [ ]v) Mean arterial pressure[A] less than 60 mm Hg [ ]vi) Mean arterial pressure[A] less than 70 mm Hg after 30 minutes of appropriate treatment (eg, fluid resuscitation) [ ]vii) IV inotropic or vasopressor medication required to maintain adequate blood pressure or perfusion [ ]viii) Sustained heart rate greater than 120 beats per minute in adult or child 6 years or older[B]] [ ]II. Hypertension requiring inpatient treatment as indicated by ANY ONE of the following(6)(7)(8): [ ]a) SBP greater than 220 mm Hg or DBP greater than 120 mm Hg despite treatment [ ]b) SBP greater than 140 mm Hg or DBP greater than 100 mm Hg with evidence of acute end organ damage as indicated by ANY ONE of the following: [ ]i) Encephalopathy [ ]ii) Acute renal failure as indicated by new onset of ANY ONE of the following(9)(10)(11)(12)(13): [ ]1) A 3-fold rise in serum creatinine from baseline [ ]2) Serum creatinine greater than 4 mg/dL ( 354 micromoles/L) with acute rise greater than 0.5 mg/dL (44.2 micromoles/L) [ ]3) Reduction of more than 75% in estimated glomerular filtration rate from baseline [ ]4) Estimated glomerular filtration rate less than 35 mL/min/1.73m2 (0.59 mL/sec/1.73m2) in child up to 18 years of age [ ]5) Cessation of urine output indicated by ALL of the following: [ ]A. Adequate volume status [ ]B. Inadequate urine output as indicated by ANY ONE of the following: [ ]a. Urine output less than 0.3 mL/kg/hr for 24 hours [ ]b. Anuria (urine output less than 0.1 mL/kg/hr) for 12 hours [ ]iii) Aortic dissection [ ]iv) Myocardial ischemia [ ]v) Left ventricular heart failure [ ]vi) Retinal hemorrhage [ ]vii) Other significant finding [ ]c) Hypertension in child requiring inpatient treatment as indicated by ALL of the following(14)(15)(16): [ ]i) Outpatient treatment not effective, not available, or not appropriate [ ]ii) SBP or DBP greater than 95th percentile for age [ ]iii) Evidence of acute end organ damage as indicated by ANY ONE of the following: [ ]1) Altered mental status [ ]2) Acute renal failure as indicated by new onset of ANY ONE of the following(9)(10)(11)(12)(13): [ ]A. A 3-fold rise in serum creatinine from baseline [ ]B. Serum creatinine greater than 4 mg/dL (354 micromoles/L) with acute rise greater than 0.5 mg/dL (44.2 micromoles/L) [ ]C. Reduction of more than 75% in estimated glomerular filtration rate from baseline [ ]D. Estimated glomerular filtration rate less than 35 mL/min/1.73m2 (0.59 mL/sec/1.73m2)in child up to 18 years of age [ ]E. Cessation of urine output indicated by ALL of the following: [ ]a. Adequate volume status [ ]b. Inadequate urine output as indicated by ANY ONE of the following: [ ]1) Urine output less than 0.3 mL/kg/hr for 24 hours [ ]2) Anuria (urine output less than 0.1 mL/kg/hr) for 12 hours [ ]3) Severe headache [ ]4) Visual disturbance [ ]5) Retinal hemorrhage [ ]6) Other significant finding [ ]III. Acute cardiac or peripheral ischemia as indicated by ANY ONE of the following: [ ]a) Acute coronary syndrome(17)(18) [ ]b) Acute peripheral ischemia (eg, pulseless, cool, mottled, or cyanotic extremity)(19) [ ]IV. Cardiac arrhythmias or findings of immediate concern indicated by ANY ONE of the following(20)(21): [ ]a) Heart rhythms that are inherently dangerous or unstable indicated by ANY ONE of the following(22)(23)(24): [ ]i) Resuscitated ventricular fibrillation or cardiac arrest [ ]ii) Ventricular escape rhythm [ ]iii) Sustained ventricular tachycardia (30 seconds or more of ventricular rhythm at greater than 100 beats per minute) [ ]iv) Nonsustained ventricular tachycardia and ANY ONE of the following: [ ]1) Suspected cardiac ischemia as cause or consequence of ventricular tachycardia [ ]2) In setting of acute myocarditis [ ]b) Unstable cardiac conduction defects indicated by ANY ONE of the following(24)(25)(26): [ ]i) Type II second-degree atrioventricular block [ ]ii) Third-degree atrioventricular block [ ]iii) New-onset left bundle branch block with suspected myocardial ischemia [ ]c) Any heart rhythm and ANY ONE of the following(22)(23)(27)(28)( 29): [ ] i) Continuous long-term ECG monitoring needed (eg, initiation of drug requiring monitoring for more than 24 hours) [ ] ii) Patient has automatic implanted cardioverter defibrillator that is repeatedly firing, malfunctioning, or in need of immediate adjustment of settings beyond the scope of ambulatory or observation care. [ ]d) Heart rhythms of concern due to ANY ONE of the following: [ ]i) Hypotension [ ]ii) Respiratory distress [ ]iii) Association with other significant symptoms (eg, bradycardia with syncope or ongoing dizziness, supraventricular tachycardia with chest pain) (27)(28) (30) [ ] V. Severe heart failure as indicated by ANY ONE of the following ( 31)(32): [ ]a) Respiratory distress [ ]b) Hypotension [ ]c) Anasarca (refractory to outpatient therapy) [ ]d) Cardiac arrhythmias of immediate concern [ ]e) Myocardial ischemia [ ]. Respiratory abnormalities, including ANY ONE of the following(33)(34) (35)(36): [ ]a) Respiratory rate greater than 30 breaths per minute unresponsive to treatment [A] [ ]b) New saturation of arterial oxygen less than 90% [ ]c) New partial pressure of carbon dioxide greater than 44 mm Hg ( 5.9 kPa) [ ]d) Supplemental oxygen or respiratory treatments needed that are new or not performable at other levels of care [ ]e) New-onset cyanosis [ ]f) Inability to protect airway [ ]g) Chronic lung disease with severe deterioration (not responsive to emergency and observation care treatment as appropriate) as indicated by ANY ONE of the following(34)(36 ): [ ]i) SaO2 5% below baseline in patient with chronic hypoxemia [ ]ii) New requirement for supplemental oxygen to keep SaO2 at baseline or acceptable level [ ]iii) Required supplemental oxygen performable only in acute inpatient setting [ ]iv) Severe airflow or ventilation abnormalities [ ]v) Previously mobile patient unable to walk between rooms [ ]vi Inability to eat or sleep due to dyspnea [ ]vii) Rapid rate of exacerbation onset [ ]viii) Altered mental status ]VII. Severe airflow or ventilation abnormalities (not responsive to emergency and observation care treatment as appropriate) as indicated by ANY ONE of the following(33)(34)(35)(37): [ ]a) PCO2 greater than 42 mm Hg (5.6 kPa) and pH less than 7.35 (new ) [ ]b) Documented PCO2 increased more than 5 mm Hg (0.7 kPa) from disease baseline [ ]c) Airflow measurements [B] less than 60% of previous best or predicted (eg, peak expiratory flow rate less than 300 L/minute) despite intensive emergent treatment [C] [ ]d) Required respiratory treatments that are performable only in acute inpatient setting [ ]VIII. Impending or actual respiratory arrest ( Also use Respiratory Failure GRG for severe respiratory disease and long-term mechanical ventilation patients) [ ]IX. Neurologic abnormalities, including ANY ONE of the following: [ ]a) New findings that suggest ANY ONE of the following: [ ]i) [employer] infection(38) [ ]ii) Cerebral bleeding, ischemia, or vasospasm(39)(40) [ ]iii) Increased intracranial pressure, hydrocephalus, or cerebral edema(41)(42)(43) [ ]iv) Spinal cord injury(44) [ ]b) Uncontrolled seizures(45) [ ]c) New-onset coma (eg, Chauncey coma scale score less than 9) or unexplained abnormal mental status (eg, Chauncey coma scale score less than 14) [D](41)(46)(47) [ ]X. New-onset severe neurologic findings requiring inpatient care; examples include(42)(48)(49): [ ]a) Papilledema [ ]b) Cerebral edema [ ]c) Mass effect on CT scan [ ]XI. Suspected acute intra-abdominal process with peritoneal signs, abdominal mass, or similar findings (50)(51)(52) [ ]XII. Severe physiologic disorder remaining after emergency or observation level care (as appropriate) as indicated by ANY ONE of the following (53): [ ]a) Significant dehydration [ ]b) Diabetic ketoacidosis [ ]c) Hyperglycemic hyperosmolar state (eg, osmolality greater than 320 mOsm/kg (mmol/kg) [ ]d) Hypoglycemia [ ]e) Other (new) acid-base disorder with pH less than 7.35 or greater than 7.5(54) [ ]f) Thyroid storm (55) [ ]g) Myxedema coma (55) [ ]XIII. Abdominal abnormalities with ANY ONE of the following(56)(57): [ ]a) Absent bowel sounds with complete ileus [ ]b) Signs of intestinal obstruction or peritonitis [E] [ ]c) Nausea and vomiting that cannot be controlled with outpatient or observation care [ ]XIV. Acute renal failure as indicated by new onset of ANY ONE of the following(9)(10)(11)(12)(13): [ ]a) A 3-fold rise in serum creatinine from baseline [ ]b) Serum creatinine greater than 4 mg/dL (354 micromoles/L) with acute rise greater than 0.5 mg/dL (44.2 micromoles/L) [ ]c) Reduction of more than 75% in estimated glomerular filtration rate from baseline [ ]d) Estimated glomerular filtration rate less than 35 mL/min/ 1.73m2 (0.59 mL/sec/1.73m2) in child up to 18 years of age [ ]e) Cessation of urine output indicated by ALL of the following: [ ]i) Adequate volume status [ ]ii) Inadequate urine output as indicated by ANY ONE of the following: [ ]1) Urine output less than 0.3 mL/kg/hr for 24 hours [ ]2) Anuria (urine output less than 0.1 mL/kg/hr) for 12 hours [ ]XV. Significant uremic complications as indicated by ANY ONE of the following(58)(59)(60): [ ]a) Outpatient therapy is ineffective or not feasible for ANY ONE of the following: [ ]i) Severe heart failure [ ]ii) Severehypertension [ ]iii) Pleural effusion [ ]iv) Pericarditis or pericardial effusion [ ]b) Cardiac arrhythmias of immediate concern [ ]c) Intractable nausea or vomiting [ ]d) Recurrent seizures [ ]e) Encephalopathy [ ]f) Bleeding abnormalities (eg, platelet dysfunction) with active (eg, gastrointestinal) bleeding [ ]g) Dialysis indicated before long-term access or ambulatory arrangements can be made [ ]h) Significant metabolic or electrolyte abnormalities (eg, severe acidosis or hyperkalemia) [ ]XVI. High fever or other high-risk infection situation as indicated by ANY ONE of the following(61)(62)(63)(64): [ ]a) Outpatient and observation care antimicrobial treatment unavailable, not effective, or not appropriate [ ]b) Documented bacteremia [ ]c) Temperature greater than 40.5 degrees C (104.9 degrees F) ( oral) [ ]d) Temperature greater than 39.5 degrees C (103.1 degrees F) ( oral) or less than 36 degrees C (96.8 degrees F) (rectal) that does not respond to e treatment and observation care [ ] XVII. Temperature less than 95 degrees F (35 degrees C)(rectal)(65) [ ] XVIII. Severe nutritional abnormalities as indicated by ALL of the following (66)(67): [ ]a) Inability to tolerate or establish sufficient oral or other enteral nutrition in outpatient setting [ ]b) Parenteral nutrition regimen need that must be implemented on inpatient basis [X ] XIX. Severe electrolyte abnormalities indicated by ALL of the following(68 )(69)(70): [ ]a) Electrolytes and associated findings are not as expected for patient baseline or acceptable treatment effects. [X ]b) Severe abnormalities indicated by ANY ONE of the following: [ ]i) Sodium less than 130 mEq/L (mmol/L) (new) [X ]ii)Sodium less than 135 mEq/L (mmol/L) with ANY ONE of the following: [ ]1) Uncorrectable (to near normal or chronic baseline) after trial of outpatient and emergency treatment [ ]2) Altered mental status [ ]3) Seizures [ X]4) Severe medical etiology requiring inpatient management (eg, heart failure, hypovolemia) [ ]iii) Sodium greater than 155 mEq/L (mmol/L) [ ]iv) Sodium greater than 150 mEq/L (mmol/L) with ANY ONE of the following: [ ]1) Uncorrectable (to near normal or chronic baseline) with outpatient and emergency treatment [ ]2) Altered mental status [ ]3) Seizures [ ]4) Severe medical etiology (eg, hypovolemia, diabetes insipidus) [ ]v) Potassium less than 2.5 mEq/L (mmol/L) despite outpatient and emergency treatment [ ]vi) Potassium less than 3 mEq/L (mmol/L) with ANY ONE of the following: [ ]1) Weakness [ ]2) Cardiac abnormality (eg, arrhythmia, conduction disturbance) [ ]3) Cardiac ischemia [ ]4) Ileus [ ]5) Ongoing medical cause requiring inpatient management (eg, acute renal wasting or SIADH) [ ]6) Other severe symptoms [ ]vii) Potassium greater than 6.5 mEq/L (mmol/L) [ ]viii) Potassium greater than 5 mEq/L (mmol/L) with ANY ONE of the following: [ ]1) Uncorrectable (to near normal or chronic baseline) with outpatient and emergency treatment [ ]2) Severe ECG findings [F] [ ]3) Acute worsening of renal failure (creatinine greater than 2.5 mg/dL (221 micromoles/L) or significant elevation for age and size) [ ]4) Severe weakness [ ]5) Severe medical etiology (eg, hemolysis, infection, drug overdose) [ ]ix) Calcium less than 7 mg/dL (1.75 mmol/L) despite outpatient and emergency treatment (72) [ ]x) Calcium less than 8 mg/dL (2 mmol/L) with significant symptoms or findings; examples include(72): [ ]1) Altered mental status [ ]2) Muscle spasms [ ]3) Seizures [ ]4) Breathing difficulty [ ]5) Cardiac abnormality (eg, arrhythmia or conduction disturbance) [ ]xi) Calcium greater than 14 mg/dL (3.5 mmol/L)(72) [ ]xii) Calcium greater than 12 mg/dL (3 mmol/L) with ANY ONE of the following(72): [ ]1) Uncorrectable (to near normal or chronic baseline) with outpatient and emergency treatment [ ]2) Significant dehydration or hypovolemia as indicated by ALL of the following(70)(73)(74): [ ]A. Not resolved with initial treatments [ ]B. Clinically significant dehydration as indicated by ANY ONE of the following: [ ]a. Vomiting refractory to outpatient treatment (ie, precluding oral rehydration) [ ]b. Inability to drink [ ]c. Hypernatremia or other electrolyte abnormality unable to be corrected with outpatient and emergency treatment [ ]d. Failure to remain hydrated with outpatient therapy [ ]e. Reduced urine output [ ]f. Hypotension [ ]g. Serious cause for dehydration requiring acute hospitalization (eg, bowel obstruction, increased intracranial pressure, infectious cause) [ ]h. Child with ANY ONE of the following(75): [ ]1) Severe abdominal tenderness [ ]2) Adequate care not available at home [ ]3) Severe dehydration ( greater than 9% loss of body weight) [ ]4) Significant symptoms or findings; examples include: [ ]A. Altered mental status [ ]B. Cardiac abnormality (eg, arrhythmia, conduction disturbance) [ ]C. Malignant etiology requiring inpatient treatment [ ]xiii) Phosphorus less than 1 mg/dL (0.32 mmol/L) [ ]xiv) Phosphorus less than 1.5 mg/dL (0.48 mmol/L) with ANY ONE of the following: [ ]1) Patient unresponsive to outpatient and emergency treatment [ ]2) Significant symptoms or findings; examples include: [ ]A. Weakness [ ]B. Altered mental status [ ]C. Breathing difficulty [ ]D. Seizures [ ]E. Rhabdomyolysis [ ]xv) Phosphorus greater than 10 mg/dL (3.2 mmol/L) [ ]xvi) Phosphorus greater than 4.5 mg/dL (1.45 mmol/L) (new) with ANY ONE of the following: [ ]1) Severe medical etiology (eg, crush injury, acute renal failure) [ ]2) Associated hypocalcemia with significant findings; examples include: [ ]A. Neurologic symptoms [ ]B. Altered mental status [ ]C. Muscle spasms [ ]D. Seizures [ ]E. Breathing difficulty [ ]F. Cardiac abnormality (eg, arrhythmia, conduction disturbance) [ ]xvii) Magnesium less than 1 mg/dL (0.41 mmol/L) [ ]xviii) Magnesium less than 1.5 mg/dL (0.62 mmol/L) with ANY ONE of the following: [ ]1) Patient unresponsive to outpatient and emergency treatment [ ]2) Associated hypocalcemia with significant findings; examples include: [ ]A. Altered mental status [ ]B. Muscle spasms [ ]C. Seizures [ ]D. Breathing difficulty [ ]E. Cardiac abnormality (eg, arrhythmia , conduction disturbance) [ ]3) Associated hypokalemia (potassium less than 3 mEq/L (mmol/L)) with risk of arrhythmia [ ]xix) Magnesium greater than 4 mEq/L (2 mmol/L) [ ]xx) Magnesium greater than 2.5 mEq/L (1.25 mmol/L) with significant symptoms or findings; examples include: [ ]1) Weakness [ ]2) Altered mental status [ ]3) Cardiac abnormality (eg, arrhythmia, conduction disturbance) [ ]4) Breathing difficulty [ ]5) Severe medical etiology (eg, renal failure, hypovolemia) [ ]xxi) Uric acid greater than 20 mg/dL (1190 micromoles/L)(76) [ ]xxii) Uric acid greater than 8 mg/dL (476 micromoles/L) with significant symptoms or findings of tumor lysis syndrome; examples include(76): [ ]1) Creatinine greater than 1.5 times upper limit of normal [ ]2) Cardiac abnormality (eg, arrhythmia, conduction disturbance) [ ]3) Seizure [ ]XX. Acute blood loss causing significant abnormality as indicated by ANY ONE of the following(77)(78): [ ]a) Hemoglobin less than 10 g/dL (100 g/L) (not baseline) [ ]b) Hematocrit less than 30% (0.30) (not baseline) [ ]c) Repeat hematocrit decreased more than 2% (0.02) [ ]d) Uncontrolled bleeding [ ]XXI. Severe anemia indicated by ANY ONE of the following(78)(79): [ ]a) Altered mental status [ ]b) Chest pain [ ]c) Exertional dyspnea [ ]d) Syncope [ ]e) Other findings suggesting inadequate perfusion [ ]f) Treatment with transfusion or volume replacement is ineffective at resolving ANY ONE of the following [G]: [ ]i) Tachycardia for age [ ]ii) Orthostatic vital sign changes as indicated by ANY ONE of the following(80): [ ]1) Fall in SBP of 20 mm Hg or more 1 to 3 minutes after patient sits or stands from recumbent position [ ]2) Fall in DBP of 10 mm Hg or more 1 to 3 minutes after patient sits or stands from recumbent position [ ]XXII. High-risk low platelet count as indicated by ANY ONE of the following( 81)(82): [ ]a) Severe or life-threatening bleeding (eg, intracranial, major gastrointestinal, or extensive mucosal bleeding), with any reduced platelet count [ ]b) Platelet count less than 20,000/mm3 (20 x109/L) with any active bleeding [ ]c) Platelet count less than 10,000/mm3 (10 x109/L) with minor purpura or petechiae [ ]d) Platelet count less than 5000/mm3 (5 x109/L) [ ]e) Low platelet count with hemolytic anemia [ ]XXIII. Disseminated intravascular coagulation(77)(83) [ ]XXIV. Severe adverse drug or systemic toxin reaction requiring inpatient treatment; examples include(84)(85): [ ]a) Serotonin syndrome(86) [ ]b) Neuroleptic malignant syndrome(86) [ ]c) Cholinergic syndrome with severe symptoms (eg, bronchorrhea, weakness, mental status changes, seizures) [ ]d) Sympathetic syndrome with severe symptoms (eg, seizures, mental status changes, cardiac dysrhythmias) [ ]e) Anticholinergic syndrome [ ]XXV. Severe pain requiring acute inpatient management as indicated by ALL of the following (87)(88)(89): [ ]a) Continuous or frequent (eg, every 2 to 4 hours) parenteral analgesics required [H] [ ]b) Rapid improvement expected from treatment or acute intervention (eg, surgery, anesthesia procedure) [ ]XXVI.Severe behavioral health issues judged unmanageable at a lower level of care (eg, residential) in a patient who is ANY ONE of the following(91) [ ]a) Acutely suicidal [ ]b) A danger to self (eg, self-mutilating or suicidal behavior) [ ]c) A danger to others (eg, assaultive or homicidal behavior) [ ]d) Incapacitated because of grave disability (eg, inability to provide for self at lower level of care) (92) [ ]XXVII. Inpatient monitoring needed; examples include(1)(3)(87)(93)(94)(95)(96 ): [ ]a) Vital signs, neurologic signs, or vascular checks more frequently than every 4 hours [ ]b) Cardiac or respiratory monitoring beyond the scope (eg, over 24 hours) of observation care [ ]c) Pulmonary artery catheter monitoring [ ]d) Suspected compartment syndrome(97) (98) [ ]e) Cerebral bleeding, hydrocephalus, or vasospasm monitoring [ ]f) Increased intracranial pressure or cerebral edema monitoring [ ]g) monitoring [ ]XXVIII. Treatment requiring inpatient care; examples include: [ ]a) IV fluid to replace significant ongoing losses (greater than 3 L/m2 per day)(53) [ ]b) High concentration oxygen (greater than 40%)(33)(99)(100) [ ]c) Frequent respiratory therapy (more frequently than every 4 hours) to maintain airflow rates greater than 60% of baseline(33)(99)(100) [ ]d) Epidural analgesia(87) [ ]e) IV anticoagulation, vasoactive, or antiarrhythmic medication(19 )(23) [ ]f) Acute thrombolytics (generally require 24 hours of observation )(101)(102) [ ]XXIX. Emergency procedures needed; examples include: [ ]a) Emergency inpatient surgery [ ]b) Temporary pacemaker placement(103) [ ]c) Chest tube placement with active evacuation (eg, suction, drainage)(104) [ ]d) Emergent cardioversion(105) [ ]e) Emergent cardiac or vascular procedures (eg, cardiac catheterization, angioplasty) (17)(18) [ ]f) Emergent dialysis access placement and institution(10)(106) [ ]g) Emergent pericardiocentesis(107) [ ]h) Emergent plasmapheresis or leukapheresis(83) [ ]i) Emergent tracheostomy The original [employer] content created by [employer] has been revised. The portions of the content which have been revised are identified through the use of italic text or in bold, and [employer] has neither reviewed nor approved the modified material. All other unmodified content is copyright [employer]. Please see references footnoted in the original [employer] edition 2016 Admission Criteria Met: Yes
--- NOTE | 2016-09-04 14:39 | Cat Scan Report ---
CT HEAD WITHOUT CONTRAST INDICATION: Altered mental status. COMPARISON: None similar. FINDINGS: Noncontrast head CT demonstrates normal ventricles and age appropriate, symmetric, mildly enlarged sulci, more so towards the vertex. Mild periventricular and few white matter hypodense small vessel ischemic disease. Few small lacunar infarcts, as measuring 3-4 mm left ganglionic. Motion artifact partly degrades exam. No acute or recent infarct, hemorrhage, mass effect or midline shift. No abnormal extra-axial fluid collections. Posterior fossa structures and basilar cisterns are within normal limits. Bilateral cataract surgery. Mild rightward nasal septal bowing. Clear paranasal sinuses and mastoid air cells. Mild ICA atherosclerotic calcifications. Hyperostosis frontalis interna. Approximately 1.2 cm left paramidline frontal scalp swelling/hematoma. Edentulous jaw. CONCLUSION: No acute intracranial CT abnormality with various other findings, as described. Thank you for the opportunity to participate in this patient's care.
--- NOTE | 2016-09-04 15:38 | XRay Report ---
Portal chest: Altered metal status. There is a generally coarse overall interstitial pattern. There is no nodule nor infiltrate. There is no vascular congestion. The heart is normal in size for positioning. The findings do not appear significantly changed compared to a prior study in May 2011. Impression: No acute finding.
--- NOTE | 2016-09-04 16:24 | History and Physical Report ---
History of Present Illness Date of examination: 09/04/16 Date of admission: 09/04/16 Chief complaint: gen weakness History of present illness: This is a 80-year-old female with significant past medical history diabetes mellitus type 2, depression and anxiety who presents to the emergency department with chief complaint of generalized weakness. Patient reportedly was unable to get out of recliner in which she slept in last night. Patient denies any chest pain or shortness of breath. Patient reports that she has been progressively getting weaker over the past weeks. Patient was recently hospitalized here and discharged on August 14 for sepsis with UTI and severe back pain secondary to severe spondylosis/degenerative joint disease. Patient denies any chest pain or shortness breath. No headache no visual disturbances. No lateralizing signs or symptoms. No dysarthria or dysphagia. No cough or cold-like symptoms. Patient currently resides at home with her . ER physician reports that her would like for the patient to be admitted to a group home facility because of general debility and weakness. is not at the bedside. Past History Past Medical History: diabetes, hyperlipidemia, other (depression, anxiety) Past Surgical History: No surgical history Social history: no significant social history Family history: no significant family history Medications and Allergies Allergies Allergy/AdvReac Type Severity Reaction Status Date / Time Penicillins AdvReac Itching Verified 09/04/16 11:16 Home Medications Medication Instructions Recorded Confirmed Last Taken Type Baclofen [Lioresal] 10 mg PO DAILY 08/11/16 09/04/16 09/04/16 History Insulin Glargine,Hum.rec.anlog 30 units SQ QHS 08/11/16 09/04/16 09/03/16 History [Lantus Solostar] Sertraline [Zoloft] 100 mg PO BID 08/11/16 09/04/16 09/03/16 History glipiZIDE [Glucotrol] 5 mg PO QDAY 08/11/16 09/04/16 09/03/16 History Levofloxacin [Levaquin TAB] 500 mg PO Q24H #5 tablet 08/14/16 09/04/16 09/03/16 Rx traMADol [Ultram] 50 mg PO Q4HR PRN 09/04/16 09/04/16 09/04/16 History Review of Systems All systems: negative Exam - Constitutional Vitals: Temp Pulse Resp BP Pulse Ox 97.9 F 90 12 152/74 97 09/04/16 11:03 09/04/16 11:03 09/04/16 11:03 09/04/16 11:03 09/04/16 11:25 General appearance: Present: no acute distress, well-nourished - EENT Eyes: Present: PERRL ENT: hearing intact, clear oral mucosa - Neck Neck: Present: supple, normal ROM - Respiratory Respiratory effort: normal Respiratory: bilateral: CTA - Cardiovascular Heart Sounds: Present: S1 & S2. Absent: rub, click - Extremities Extremities: pulses symmetrical, No edema Peripheral Pulses: within normal limits - Abdominal General gastrointestinal: Present: soft, non-tender, non-distended, normal bowel sounds Female genitourinary: Present: normal - Integumentary Integumentary: Present: clear, warm, dry - Musculoskeletal Musculoskeletal: gait normal, strength equal bilaterally - Psychiatric Psychiatric: appropriate mood/affect, intact judgment & insight - Neurologic Neurologic: CNII-XII intact, moves all extremities Results - Labs CBC & Chem 7: 09/04/16 11:46 09/04/16 11:46 Labs: Laboratory Last Values WBC 11.3 K/mm3 (4.5-11.0) H 09/04/16 11:46 RBC 4.11 M/mm3 (3.65-5.03) 09/04/16 11:46 Hgb 10.8 gm/dl (10.1-14.3) 09/04/16 11:46 Hct 32.9 % (30.3-42.9) 09/04/16 11:46 MCV 80 fl (79-97) 09/04/16 11:46 MCH 26 pg (28-32) L 09/04/16 11:46 MCHC 33 % (30-34) 09/04/16 11:46 RDW 14.8 % (13.2-15.2) 09/04/16 11:46 Plt Count 306 K/mm3 (140-440) 09/04/16 11:46 Lymph % (Auto) 9.9 % (13.4-35.0) L 09/04/16 11:46 [place] % (Auto) 7.7 % (0.0-7.3) H 09/04/16 11:46 Eos % (Auto) 0.4 % (0.0-4.3) 09/04/16 11:46 Baso % (Auto) 0.3 % (0.0-1.8) 09/04/16 11:46 Lymph # 1.1 K/mm3 (1.2-5.4) L 09/04/16 11:46 [place] # 0.9 K/mm3 (0.0-0.8) H 09/04/16 11:46 Eos # 0.0 K/mm3 (0.0-0.4) 09/04/16 11:46 Baso # 0.0 K/mm3 (0.0-0.1) 09/04/16 11:46 Seg Neutrophils % 81.7 % (40.0-70.0) H 09/04/16 11:46 Seg Neutrophils # 9.2 K/mm3 (1.8-7.7) H 09/04/16 11:46 Sodium 131 mmol/L (137-145) L 09/04/16 11:46 Potassium 4.6 mmol/L (3.6-5.0) 09/04/16 11:46 Chloride 96.2 mmol/L (98-107) L 09/04/16 11:46 Carbon Dioxide 21 mmol/L (22-30) L 09/04/16 11:46 Anion Gap 18 mmol/L 09/04/16 11:46 BUN 15 mg/dL (7-17) 09/04/16 11:46 Creatinine 0.8 mg/dL (0.7-1.2) 09/04/16 11:46 Estimated GFR > 60 ml/min 09/04/16 11:46 BUN/Creatinine Ratio 18.75 % 09/04/16 11:46 Glucose 270 mg/dL (65-100) H 09/04/16 11:46 Lactic Acid 1.10 mmol/L (0.7-2.0) 09/04/16 14:39 Calcium 8.3 mg/dL (8.4-10.2) L 09/04/16 11:46 Total Bilirubin 0.80 mg/dL (0.1-1.2) 09/04/16 11:46 AST 13 units/L (5-40) 09/04/16 11:46 ALT 11 units/L (7-56) 09/04/16 11:46 Alkaline Phosphatase 80 units/L (35-129) 09/04/16 11:46 Troponin T < 0.010 ng/mL (0.00-0.029) 09/04/16 11:46 Total Protein 7.3 g/dL (6.3-8.2) 09/04/16 11:46 Albumin 2.9 g/dL (3.9-5) L 09/04/16 11:46 Albumin/Globulin Ratio 0.7 % 09/04/16 11:46 Urine Color Yellow (Yellow) 09/04/16 11:56 Urine Turbidity Clear (Clear) 09/04/16 11:56 Urine pH 5.0 (5.0-7.0) 09/04/16 11:56 Ur Specific [place] 1.017 (1.003-1.030) 09/04/16 11:56 Urine Protein <15 mg/dl mg/dL (Negative) 09/04/16 11:56 Urine Glucose (UA) >=500 mg/dL (Negative) 09/04/16 11:56 Urine Ketones Tr mg/dL (Negative) 09/04/16 11:56 Urine Blood Neg (Negative) 09/04/16 11:56 Urine Nitrite Neg (Negative) 09/04/16 11:56 Urine Bilirubin Neg (Negative) 09/04/16 11:56 Urine Urobilinogen < 2.0 mg/dL (<2.0) 09/04/16 11:56 Ur Leukocyte Esterase Neg (Negative) 09/04/16 11:56 Urine WBC (Auto) 1.0 /HPF (0.0-6.0) 09/04/16 11:56 Urine RBC (Auto) 3.0 /HPF (0.0-6.0) 09/04/16 11:56 U Epithel Cells (Auto) 1.0 /HPF (0-13.0) 09/04/16 11:56 Urine Bacteria (Auto) 1+ /HPF (Negative) 09/04/16 11:56 Urine Mucus 2+ /HPF 09/04/16 11:56 Assessment and Plan Assessment and plan: Generalized weakness/debility. Patient will be admitted and have physical therapy evaluation. Case management consultation for potential SNF placement. CT scan reveals no acute abnormalities. Patient has no lateralizing signs or symptoms. Check TSH and sedimentation rate. Degenerative joint disease. Supportive care. PT eval. Diabetes mellitus type 2. Continue Accu-Cheks and sliding scale insulin. 1800 ADA diet. Depression/anxiety. Continue Zoloft twice a day. Hyponatremia. IV fluid of normal saline.
[2016-09-04] MEDS ORDERED: DULCOLAX PR PRN (16:31)
[2016-09-04] MEDS ORDERED: MILK OF MAGNESIA PO PRN (16:31)
[2016-09-04] MEDS ORDERED: D50W (25GM) IV PRN (16:31)
[2016-09-04] MEDS ORDERED: INSULIN GLARGINE HUM REC ANLOG 30 UNIT SQ SCH (22:00)
[2016-09-04] MEDS: TYLENOL PO PRN (23:03)
[2016-09-04] MEDS: ZOLOFT PO SCH (23:03)
[2016-09-04] MEDS: LEVEMIR SUB-Q SCH (23:04)
[2016-09-04] MEDS: NACL 0.9% 1000 ML 1,000 ML IV SCH (23:09)
[2016-09-05 06:04] LABS: Basophils % (Auto) 0.5 % (0.0-1.8); Eosinophils % (Auto) 1.8 % (0.0-4.3); Hematocrit 35.9 % (30.3-42.9); Hemoglobin 12.1 gm/dl (10.1-14.3); Mean Corpuscular HGB Conc 34 % (30-34); Mean Corpuscular Hemoglobin 26 pg (28-32); Mean Corpuscular Volume 79 fl (79-97); Platelet Count 332 K/mm3 (140-440); Red Blood Count 4.58 M/mm3 (3.65-5.03); Red Cell Distribution Width 14.6 % (13.2-15.2); White Blood Count 9.2 K/mm3 (4.5-11.0)
[2016-09-05 06:14] LABS: Anion Gap 21 mmol/L; Blood Urea Nitrogen 12 mg/dL (7-17); Calcium 9.1 mg/dL (8.4-10.2); Carbon Dioxide 19 mmol/L (22-30); Chloride 99.9 mmol/L (98-107); Glucose 113 mg/dL (65-100); Potassium 4.2 mmol/L (3.6-5.0); Sodium 136 mmol/L (137-145)
[2016-09-05] MEDS: GLUCOTROL PO SCH (10:33)
[2016-09-05] MEDS: LOVENOX SUB-Q SCH (10:33)
[2016-09-05] MEDS: ZOLOFT PO SCH ×2 (10:33→22:49)
[2016-09-05] MEDS: SYNTHROID PO SCH (10:34)
[2016-09-05] MEDS: TYLENOL PO PRN (15:37)
--- NOTE | 2016-09-05 16:41 | Progress Note ---
Assessment and Plan Assessment and plan: 80 year old female admitted for deconditioning: Patient is on physical therapy and she is evaluated for placement. Patient is medically stable and can be discharged once he got placement. Appropriate home medication will be continued. History Interval history: Patient was seen and evaluated this morning, patient didn't have any complaints. Hospitalist Physical - Physical exam Narrative exam: Not in cardiopulmonary distress. 80-year-old friable white lady. Vital signs as documented. Head exam is unremarkable. No scleral icterus . Neck is without jugular venous distension, thyromegaly, or carotid bruits. Lungs are clear to auscultation. Cardiac exam reveals regular rate and Rhythm. Abdominal exam reveals normal bowel sounds, no masses. Extremities are nonedematous and both femoral and pedal pulses are normal. SENIOR GENETIC COUNSELOR: Alert and oriented 3. No focal weakness. - Constitutional Vitals: Temp Pulse Resp BP Pulse Ox 98.3 F 77 20 115/51 98 09/05/16 09:37 09/05/16 09:37 09/05/16 09:37 09/05/16 09:37 09/04/16 22:00 General appearance: Present: no acute distress, well-nourished Results - Labs CBC & Chem 7: 09/05/16 04:18 09/05/16 04:18 Labs: Laboratory Last Values WBC 9.2 K/mm3 (4.5-11.0) 09/05/16 04:18 RBC 4.58 M/mm3 (3.65-5.03) 09/05/16 04:18 Hgb 12.1 gm/dl (10.1-14.3) 09/05/16 04:18 Hct 35.9 % (30.3-42.9) 09/05/16 04:18 MCV 79 fl (79-97) 09/05/16 04:18 MCH 26 pg (28-32) L 09/05/16 04:18 MCHC 34 % (30-34) 09/05/16 04:18 RDW 14.6 % (13.2-15.2) 09/05/16 04:18 Plt Count 332 K/mm3 (140-440) 09/05/16 04:18 Lymph % (Auto) 17.6 % (13.4-35.0) 09/05/16 04:18 [place] % (Auto) 6.7 % (0.0-7.3) 09/05/16 04:18 Eos % (Auto) 1.8 % (0.0-4.3) 09/05/16 04:18 Baso % (Auto) 0.5 % (0.0-1.8) 09/05/16 04:18 Lymph # 1.6 K/mm3 (1.2-5.4) 09/05/16 04:18 [place] # 0.6 K/mm3 (0.0-0.8) 09/05/16 04:18 Eos # 0.2 K/mm3 (0.0-0.4) 09/05/16 04:18 Baso # 0.0 K/mm3 (0.0-0.1) 09/05/16 04:18 Seg Neutrophils % 73.4 % (40.0-70.0) H 09/05/16 04:18 Seg Neutrophils # 6.8 K/mm3 (1.8-7.7) 09/05/16 04:18 ESR 85 mm/Hr (0-20) 09/04/16 11:46 Sodium 136 mmol/L (137-145) L 09/05/16 04:18 Potassium 4.2 mmol/L (3.6-5.0) 09/05/16 04:18 Chloride 99.9 mmol/L (98-107) 09/05/16 04:18 Carbon Dioxide 19 mmol/L (22-30) L 09/05/16 04:18 Anion Gap 21 mmol/L 09/05/16 04:18 BUN 12 mg/dL (7-17) 09/05/16 04:18 Creatinine 0.5 mg/dL (0.7-1.2) L 09/05/16 04:18 Estimated GFR > 60 ml/min 09/05/16 04:18 BUN/Creatinine Ratio 24.00 % 09/05/16 04:18 Glucose 113 mg/dL (65-100) H 09/05/16 04:18 POC Glucose 240 (70-105) H 09/05/16 11:51 Lactic Acid 1.10 mmol/L (0.7-2.0) 09/04/16 14:39 Calcium 9.1 mg/dL (8.4-10.2) 09/05/16 04:18 Total Bilirubin 0.80 mg/dL (0.1-1.2) 09/04/16 11:46 AST 13 units/L (5-40) 09/04/16 11:46 ALT 11 units/L (7-56) 09/04/16 11:46 Alkaline Phosphatase 80 units/L (35-129) 09/04/16 11:46 Troponin T < 0.010 ng/mL (0.00-0.029) 09/04/16 11:46 Total Protein 7.3 g/dL (6.3-8.2) 09/04/16 11:46 Albumin 2.9 g/dL (3.9-5) L 09/04/16 11:46 Albumin/Globulin Ratio 0.7 % 09/04/16 11:46 TSH 35.570 mlU/mL (0.270-4.200) H 09/04/16 16:55 Urine Color Yellow (Yellow) 09/04/16 11:56 Urine Turbidity Clear (Clear) 09/04/16 11:56 Urine pH 5.0 (5.0-7.0) 09/04/16 11:56 Ur Specific [place] 1.017 (1.003-1.030) 09/04/16 11:56 Urine Protein <15 mg/dl mg/dL (Negative) 09/04/16 11:56 Urine Glucose (UA) >=500 mg/dL (Negative) 09/04/16 11:56 Urine Ketones Tr mg/dL (Negative) 09/04/16 11:56 Urine Blood Neg (Negative) 09/04/16 11:56 Urine Nitrite Neg (Negative) 09/04/16 11:56 Urine Bilirubin Neg (Negative) 09/04/16 11:56 Urine Urobilinogen < 2.0 mg/dL (<2.0) 09/04/16 11:56 Ur Leukocyte Esterase Neg (Negative) 09/04/16 11:56 Urine WBC (Auto) 1.0 /HPF (0.0-6.0) 09/04/16 11:56 Urine RBC (Auto) 3.0 /HPF (0.0-6.0) 09/04/16 11:56 U Epithel Cells (Auto) 1.0 /HPF (0-13.0) 09/04/16 11:56 Urine Bacteria (Auto) 1+ /HPF (Negative) 09/04/16 11:56 Urine Mucus 2+ /HPF 09/04/16 11:56
[2016-09-05] MEDS: NOVOLOG SUB-Q SCH ×2 (17:00→22:50)
[2016-09-05] MEDS: LEVEMIR SUB-Q SCH (22:49)
[2016-09-06] MEDS: NACL 0.9% 1000 ML 1,000 ML IV SCH ×2 (03:53→18:07)
[2016-09-06] MEDS: ZOFRAN IV PRN ×2 (05:11→09:57)
[2016-09-06] MEDS: TYLENOL PO PRN (05:11)
[2016-09-06] MEDS: SYNTHROID PO SCH (06:25)
[2016-09-06] MEDS: NOVOLOG SUB-Q SCH ×4 (08:00→23:20)
[2016-09-06] MEDS: LOVENOX SUB-Q SCH (09:56)
[2016-09-06] MEDS: ZOLOFT PO SCH ×2 (09:57→23:18)
[2016-09-06] MEDS: GLUCOTROL PO SCH (09:57)
--- NOTE | 2016-09-06 17:58 | Progress Note ---
Assessment and Plan Assessment and plan: 80 year old female admitted for deconditioning: Patient is on physical therapy and she is evaluated for placement. Patient is medically stable and can be discharged once he got placement. Appropriate home medication will be continued. History Interval history: Patient was seen and evaluated this morning, patient didn't have any complaints. Hospitalist Physical - Physical exam Narrative exam: Not in cardiopulmonary distress. 80-year-old friable white lady. Vital signs as documented. Head exam is unremarkable. No scleral icterus . Neck is without jugular venous distension, thyromegaly, or carotid bruits. Lungs are clear to auscultation. Cardiac exam reveals regular rate and Rhythm. Abdominal exam reveals normal bowel sounds, no masses. Extremities are nonedematous and both femoral and pedal pulses are normal. DATA ENTRY ASSOCIATE: Alert and oriented 3. No focal weakness. - Constitutional Vitals: Temp Pulse Resp BP Pulse Ox 98.1 F 70 18 114/50 97 09/06/16 10:00 09/06/16 10:00 09/06/16 10:00 09/06/16 10:00 09/06/16 10:00 General appearance: Present: no acute distress, well-nourished Results - Labs CBC & Chem 7: 09/05/16 04:18 09/05/16 04:18 Labs: Laboratory Last Values WBC 9.2 K/mm3 (4.5-11.0) 09/05/16 04:18 RBC 4.58 M/mm3 (3.65-5.03) 09/05/16 04:18 Hgb 12.1 gm/dl (10.1-14.3) 09/05/16 04:18 Hct 35.9 % (30.3-42.9) 09/05/16 04:18 MCV 79 fl (79-97) 09/05/16 04:18 MCH 26 pg (28-32) L 09/05/16 04:18 MCHC 34 % (30-34) 09/05/16 04:18 RDW 14.6 % (13.2-15.2) 09/05/16 04:18 Plt Count 332 K/mm3 (140-440) 09/05/16 04:18 Lymph % (Auto) 17.6 % (13.4-35.0) 09/05/16 04:18 [place] % (Auto) 6.7 % (0.0-7.3) 09/05/16 04:18 Eos % (Auto) 1.8 % (0.0-4.3) 09/05/16 04:18 Baso % (Auto) 0.5 % (0.0-1.8) 09/05/16 04:18 Lymph # 1.6 K/mm3 (1.2-5.4) 09/05/16 04:18 [place] # 0.6 K/mm3 (0.0-0.8) 09/05/16 04:18 Eos # 0.2 K/mm3 (0.0-0.4) 09/05/16 04:18 Baso # 0.0 K/mm3 (0.0-0.1) 09/05/16 04:18 Seg Neutrophils % 73.4 % (40.0-70.0) H 09/05/16 04:18 Seg Neutrophils # 6.8 K/mm3 (1.8-7.7) 09/05/16 04:18 ESR 85 mm/Hr (0-20) 09/04/16 11:46 Sodium 136 mmol/L (137-145) L 09/05/16 04:18 Potassium 4.2 mmol/L (3.6-5.0) 09/05/16 04:18 Chloride 99.9 mmol/L (98-107) 09/05/16 04:18 Carbon Dioxide 19 mmol/L (22-30) L 09/05/16 04:18 Anion Gap 21 mmol/L 09/05/16 04:18 BUN 12 mg/dL (7-17) 09/05/16 04:18 Creatinine 0.5 mg/dL (0.7-1.2) L 09/05/16 04:18 Estimated GFR > 60 ml/min 09/05/16 04:18 BUN/Creatinine Ratio 24.00 % 09/05/16 04:18 Glucose 113 mg/dL (65-100) H 09/05/16 04:18 POC Glucose 125 (70-105) H 09/06/16 16:32 Lactic Acid 1.10 mmol/L (0.7-2.0) 09/04/16 14:39 Calcium 9.1 mg/dL (8.4-10.2) 09/05/16 04:18 Total Bilirubin 0.80 mg/dL (0.1-1.2) 09/04/16 11:46 AST 13 units/L (5-40) 09/04/16 11:46 ALT 11 units/L (7-56) 09/04/16 11:46 Alkaline Phosphatase 80 units/L (35-129) 09/04/16 11:46 Troponin T < 0.010 ng/mL (0.00-0.029) 09/04/16 11:46 Total Protein 7.3 g/dL (6.3-8.2) 09/04/16 11:46 Albumin 2.9 g/dL (3.9-5) L 09/04/16 11:46 Albumin/Globulin Ratio 0.7 % 09/04/16 11:46 TSH 35.570 mlU/mL (0.270-4.200) H 09/04/16 16:55 Urine Color Yellow (Yellow) 09/04/16 11:56 Urine Turbidity Clear (Clear) 09/04/16 11:56 Urine pH 5.0 (5.0-7.0) 09/04/16 11:56 Ur Specific [place] 1.017 (1.003-1.030) 09/04/16 11:56 Urine Protein <15 mg/dl mg/dL (Negative) 09/04/16 11:56 Urine Glucose (UA) >=500 mg/dL (Negative) 09/04/16 11:56 Urine Ketones Tr mg/dL (Negative) 09/04/16 11:56 Urine Blood Neg (Negative) 09/04/16 11:56 Urine Nitrite Neg (Negative) 09/04/16 11:56 Urine Bilirubin Neg (Negative) 09/04/16 11:56 Urine Urobilinogen < 2.0 mg/dL (<2.0) 09/04/16 11:56 Ur Leukocyte Esterase Neg (Negative) 09/04/16 11:56 Urine WBC (Auto) 1.0 /HPF (0.0-6.0) 09/04/16 11:56 Urine RBC (Auto) 3.0 /HPF (0.0-6.0) 09/04/16 11:56 U Epithel Cells (Auto) 1.0 /HPF (0-13.0) 09/04/16 11:56 Urine Bacteria (Auto) 1+ /HPF (Negative) 09/04/16 11:56 Urine Mucus 2+ /HPF 09/04/16 11:56
[2016-09-06] MEDS: LEVEMIR SUB-Q SCH (23:20)
[2016-09-07 05:43] LABS: Basophils % (Auto) 0.4 % (0.0-1.8); Eosinophils % (Auto) 2.2 % (0.0-4.3); Hematocrit 32.5 % (30.3-42.9); Hemoglobin 10.8 gm/dl (10.1-14.3); Mean Corpuscular HGB Conc 33 % (30-34); Mean Corpuscular Hemoglobin 26 pg (28-32); Mean Corpuscular Volume 79 fl (79-97); Platelet Count 343 K/mm3 (140-440); Red Blood Count 4.11 M/mm3 (3.65-5.03); Red Cell Distribution Width 14.5 % (13.2-15.2)
[2016-09-07 06:03] LABS: Anion Gap 18 mmol/L; BUN/Creatinine Ratio 13.33; Blood Urea Nitrogen 8 mg/dL (7-17); Calcium 8.6 mg/dL (8.4-10.2); Carbon Dioxide 20 mmol/L (22-30); Chloride 100.9 mmol/L (98-107); Glucose 162 mg/dL (65-100); Potassium 3.8 mmol/L (3.6-5.0); Sodium 135 mmol/L (137-145)
[2016-09-07] MEDS: SYNTHROID PO SCH (07:21)
[2016-09-07] MEDS: ZOFRAN IV PRN (07:24)
[2016-09-07] MEDS: NOVOLOG SUB-Q SCH ×3 (07:59→17:00)
[2016-09-07] MEDS: ZOLOFT PO SCH (10:39)
[2016-09-07] MEDS: GLUCOTROL PO SCH (10:39)
[2016-09-07] MEDS: LOVENOX SUB-Q SCH (10:39)
[2016-09-07 10:50] VITALS: BP 151/75
--- NOTE | 2016-09-07 14:18 | Discharge Summary ---
Providers - Providers Date of Admission: 09/04/16 16:31 Date of discharge: 09/07/16 Attending physician: MIKE COVARRUBIAS MD 09/05/16 11:23 Physical Therapy Evaluation and Treat [CONS] Routine Comment: Reason For Exam: ABN GAIT / MOBILITY Primary care physician: ORNAMENTAL BRONZE WORKER Hospitalization Reason for admission: Debility Condition: Stable Hospital course: This is a 80-year-old female with significant past medical history diabetes mellitus type 2, depression and anxiety who presents to the emergency department with chief complaint of generalized weakness. Patient reportedly was unable to get out of recliner in which she slept in last night. Patient denies any chest pain or shortness of breath. Patient reports that she has been progressively getting weaker over the past weeks. Patient was recently hospitalized here and discharged on August 14 for sepsis with UTI and severe back pain secondary to severe spondylosis/degenerative joint disease. Patient denies any chest pain or shortness breath. No headache no visual disturbances. No lateralizing signs or symptoms. No dysarthria or dysphagia. No cough or cold-like symptoms. Patient currently resides at home with her . ER physician reports that her would like for the patient to be admitted to a fpc facility because of general debility and weakness. is not at the bedside. Patient was admitted for debility/deconditioning and Case management was consulted and found a place and discharged to SNF. Patient was hemodynamically stable at the time of discharge. Medications were reviewed and refilled at the time of discharge. Disposition: [id number]/[id number] SNF W [facility] CERT Time spent for discharge: 31 minutes - Discharge Diagnoses (1) Weakness Status: Acute (2) Debility Status: Acute (3) Impaired gait and mobility Status: Acute Core Measure Documentation - Palliative Care Palliative Care/ Comfort Measures: Not Applicable - Core Measures Any of the following diagnoses?: none Exam - Physical Exam Narrative exam: Not in cardiopulmonary distress. 80-year-old friable white lady. Vital signs as documented. Head exam is unremarkable. No scleral icterus . Neck is without jugular venous distension, thyromegaly, or carotid bruits. Lungs are clear to auscultation. Cardiac exam reveals regular rate and Rhythm. Abdominal exam reveals normal bowel sounds, no masses. Extremities are nonedematous and both femoral and pedal pulses are normal. SALES AGENT TRADING STAMPS: Alert and oriented 3. No focal weakness. - Constitutional Vitals: Temp Pulse Resp BP Pulse Ox 98.3 F 73 18 151/75 97 09/07/16 10:00 09/07/16 10:00 09/07/16 10:00 09/07/16 10:00 09/07/16 10:00 Plan Activity: advance as tolerated, fall precautions Weight Bearing Status: Weight Bear as Tolerated Diet: low cholesterol, low salt Follow up with: PRIMARY CARE, [Primary Care Provider] - 3-5 Days Prescriptions: traMADol [Ultram 50 MG tab] 50 mg PO Q4HR PRN #20 tablet PRN Reason: Pain
--- NOTE | 2016-09-13 10:19 | Query- Nutrition ---
Deabriana Aponte Date:___09/13/2016 Restrictive Preparation Operator/CDS:_King Phone#:____[phone] Exercise your independent professional judgment when responding to query. Questions asked do not imply a particular answer is desired or expected. We greatly appreciate your clarification on this issue. Clinical Documentation States: 80 Year old female was admitted on 09/04/2016. The Discharge summary states "This is a 80-year-old female with significant past medical history diabetes mellitus type 2, depression and anxiety who presents to the emergency department with chief complaint of generalized weakness. Patient was admitted for debility/deconditioning. - Discharge Diagnoses (1) Weakness Status: Acute (2) Debility Status: Acute (3) Impaired gait and mobility Status: Acute." Clinical Findings Show: Albumin: 2.9 Please select the most appropriate option 3 [] Mild Malnutrition [] Mild - Moderate Malnutrition [x] Moderate - Severe Malnutrition [] Severe Malnutrition Serum Albumin 2.8 to 3.4 g/dl or Pre-albumin 5 to 17 mg/dl1,2 Inadequate nutritional intake1,2,3,4 NPO > 5 days Weight loss: 5% in 1 month or 7.5% in 3 months or 10% in 6 months1, 3,4 BMI 16 to 18.4 or Weight <90% of ideal body weight1,2,3,4 Serum Albumin < 2.8 g/ dl1,2 Lymphocytes < 1500/ L2 Inadequate nutritional intake3, high stress e.g. major trauma, sepsis,pancreatitis, ruelas etc. Decubitus ulcers1,2, , skin breakdown2, easy hair pluckability2 Weight <80% standard for height2 Triceps skin fold <3 mm2 Mid-arm muscle circumference <15 cm2 Creatinine-height index <60% standard2 [ ] Cachexia [ ] Emaciated w/Malnutrition [ ] Other: [ x] Unable to determine [ ] Comment/Explanation: Present on Admission: [ x] Yes (Y) [ ] Clinically undeterminable (W) [ ] No (N) Please also document response in your Progress Notes and/or Discharge Summary and indicate if the condition was present on admission. MTDD
== END 2016-09-07 18:00 | DRG 91 ==
LOC: ED 10:42 → CC1 16:31 → CC2 20:24
PROVIDERS: ADMIT Hospitalist; ATTEND Internal Medicine
DX: R26.89 Other abnormalities of gait and mobility (principal); E43 Unspecified severe protein-calorie malnutrition; E87.1 Hypo-osmolality and hyponatremia; N39.0 Urinary tract infection, site not specified; R53.1 Weakness; M19.90 Unspecified osteoarthritis, unspecified site; E11.9 Type 2 diabetes mellitus without complications; F32.9 Major depressive disorder, single episode, unspecified; Z79.899 Other long term (current) drug therapy; E78.5 Hyperlipidemia, unspecified; F41.9 Anxiety disorder, unspecified; Z88.0 Allergy status to penicillin
CPT/HCPCS: 36415; 70450; 71010; 80048; 80053; 81001; 82140; 82962; 84443; 84484; 85025; 85652; 93005; 93010; G8978-GP; G8979-GP; J1650; J1815; J1818; J2405; J7030

== ENCOUNTER 2020-10-12 14:11 | Outpatient (CLI) | payer MEDICARE, OTHER ==
--- NOTE | 2020-10-12 16:04 | Mammography Report ---
DIGITAL SCREENING MAMMOGRAM WITH CAD, 10/12/2020 CLINICAL INFORMATION / INDICATION: Routine screening mammography. SCREENING MAMMO TECHNIQUE: Digital bilateral 2D mammography was obtained in the craniocaudal and mediolateral obliqu e projections. This examination was interpreted with the benefit of Computer-Aided Detection analysis . COMPARISON: 01/07/2013 through 09/22/2019. FINDINGS: Breast Density: There are scattered areas of fibroglandular density. No dominant mass, suspicious calcifications, or architectural distortion in either breast. There are benign calcifications bilaterally. IMPRESSION: No mammographic evidence of malignancy. Follow up recommendation: Routine yearly BI-RADS Category 2: Benign. A "normal" or negative report should not discourage follow up or biopsy of a clinically significant f inding. A written summary of these findings will be mailed to the patient. The patient will be entered into a mammography reporting system which will generate a reminder letter for the patient's next appointmen t at the appropriate interval. The [employer] recommends yearly mammograms starting at age 40 and continuing as l tarn as a woman is in good health. Breast MRI is recommended for women with an approximate 20-25% or greater lifetime risk of breast cancer, including women with a strong family history of breast or ova denise cancer or who have been treated for Hodgkin's disease. Signer Name: Clement Christie MD Signed: 10/12/2020 3:59 PM Workstation Name: [id number]
--- NOTE | 2020-10-12 17:09 | Mammography Report ---
DEXA BONE DENSITY SCAN INDICATION / CLINICAL INFORMATION: ASYMPTOMATIC MENOPAUSAL STATE. 84 years Female COMPARISON: None available. LUMBAR SPINE, L1-L4: - Bone mineral density (BMD) = 0.964 g/cm2. - T-score = -0.8 - Z-score = 2.1 Change (%) since most recent prior (if available): None available. LEFT HIP, NECK : - Bone mineral density (BMD) = 0.588 g/cm2. - T-score = -2.4 - Z-score = 0.1 Change (%) since most recent prior (if available): None available. IMPRESSION: 1. WHO Classification: Osteopenia. Fracture Risk: Increased. Note: 10-Year Fracture Risk (FRAX) not reported. This DEXA unit lacks FRAX functionality. BMD Reporting Guidelines (ISCD, 2015) BMD Reporting in Postmenopausal Women and in Men Age 50 and Older - T-scores are preferred. - The WHO densitometric classification is applicable. BMD Reporting in Females Prior to Menopause and in Males Younger Than Age 50 - Z-scores, not T-scores, are preferred. This is particularly important in children. - A Z-score of -2.0 or lower is defined as below the expected range for age, and a Z-score above -2.0 is within the expected range for age. - Osteoporosis cannot be diagnosed in men under age 50 on the basis of BMD alone. - The WHO diagnostic criteria may be applied to women in the menopausal transition. http://www.iscd.org/official-positions/3243-svhz-wgkozyux-positions-adult/ Signer Name: Melquiades Smalls MD Signed: 10/12/2020 5:04 PM Workstation Name: [id number]
== END 2020-10-12 14:12 | disposition home or self-care (01) ==
LOC: SPVWC 14:11
PROVIDERS: ATTEND Internal Medicine Rheumatology
DX: Z12.31 Encounter for screening mammogram for malignant neoplasm of breast (principal); M85.88 Other specified disorders of bone density and structure, other site; Z78.0 Asymptomatic menopausal state
CPT/HCPCS: 77067; 77080